=== PATIENT | female | born 1950 | race Caucasian/White ===

== ENCOUNTER → 2016-08-18 | Outpatient (CLI) | payer MEDICARE ==
[~2016-08-18] MED LIST: ASPI81TA28 PO; ATOR-14 PO; CALC-20 PO; CHOL100027 PO; CYAN500T PO; CYCL10TA6 PO; IPRA1AER2 INH; LISI-787 PO; METO1TAB31 PO; OMEGCAP2 PO; ZNT/150 PO
[2016-08-18 12:05] LABS: HEMATOCRIT 40.4 % (37-47); MEAN CELL VOLUME 87.1 fL (80-100); MEAN CORPUSCULAR HEMOGLOBIN 29.5 pg (25-34); MEAN CORPUSCULAR HGB CONC 33.9 g/dl (32-36); MEAN PLATELET VOLUME 10.8 fL (7.4-10.4); PLATELET COUNT 304 K/uL (130-400); RED BLOOD COUNT 4.64 M/uL (4.2-5.4); WHITE BLOOD COUNT 8.41 K/uL (4.8-10.8)
[2016-08-18 12:20] LABS: BLOOD UREA NITROGEN 20 mg/dl (7-18); CALCIUM 9.2 mg/dl (8.5-10.1); CARBON DIOXIDE 28 mmol/L (21-32); CHLORIDE 104 mmol/L (98-107); GLUCOSE 111 mg/dl (70-99); POTASSIUM 3.5 mmol/L (3.5-5.1); SODIUM 142 mmol/L (136-145)
== END | disposition home or self-care (01) ==
LOC: C.LABBC 09:44
PROVIDERS: ATTEND Internal Medicine
DX: R42 Dizziness and giddiness (principal)

== ENCOUNTER → 2017-03-05 | Outpatient (CLI) | payer MEDICARE ==
[~2017-03-05] MED LIST changes: +GADAVIST IV PRN
--- NOTE | 2017-03-05 11:54 | DIAGNOSTIC IMAGING REPORT ---
BRAIN COMBO FOR IAC CLINICAL HISTORY: DIZZINESS mental status change TECHNIQUE: Multi axial MRI acquisition COMPARISON STUDY: None FINDINGS: All major sinuses are considered clear. Signal characteristics of the cerebellar as well as cerebral hemispheres are unremarkable. There is a single focus of increased signal on the transaxial FLAIR images in the left frontal lobe region. This is most consistent with that of mild chronic small vessel change considered unremarkable for age.. Ventricular system is midline. There is no significant postcontrast enhancement. Sella and parasellar regions are unremarkable. Internal auditory canals are symmetric. Unremarkable signal characteristics are identified within the 7th and 8th nerves. IMPRESSION: Normal study The above report was generated using voice recognition software. It may contain grammatical, syntax or spelling errors. Electronically signed by: Jericho Mendez M.D. 03/05/2017 11:52 AM Dictated Date/Time: 03/05/2017 11:49 AM
== END | disposition home or self-care (01) ==
LOC: C.OPENMRI 10:13
DX: R42 Dizziness and giddiness (principal)

== ENCOUNTER 2017-08-02 17:47 | Emergency (ER) | payer MEDICARE ==
[~2017-08-02] VITALS: Ht 157.5 cm; Wt 77.0 kg
[~2017-08-02 17:47] MED LIST changes: -GADAVIST IV PRN; +METO-478 PO; -METO1TAB31 PO
[2017-08-02 17:49] VITALS: TEMP 36.9; Ht 157.5 cm; Wt 77.0 kg
[2017-08-02] MEDS ORDERED: ONDANSETRON INJ 2 MG/ML 2 ML VIAL IV STA (18:23)
[2017-08-02] MEDS ORDERED: FLUV1CAP PO (18:28)
[2017-08-02] MEDS ORDERED: SODIUM CHLORIDE 0.9% 1000ML 1,000 ML IV ONE (18:30)
--- NOTE | 2017-08-02 18:39 | EMERGENCY ROOM VISIT NOTE ---
History First contact with patient: 17:52 Chief Complaint: ABDOMINAL PAIN Stated Complaint: ABDOMINAL PAIN AND BLEEDING Nursing Triage Summary: Pt states that she noticed bright red blood in her stool this morning. Pt has a history of hemorrhoids. Pt denies any abdominal pain. + bowel sounds History of Present Illness The patient is a 67 year old female who presents to the Emergency Room with complaints of nausea, vomiting, diarrhea and abdominal pain that started yesterday. The patient reports constipation over the last week. Yesterday, she took Dulcolax by mouth and also a Dulcolax suppository. Shortly thereafter , she had vomiting and diffuse abdominal pain associated with diarrhea. She is also had a few bloody bowel movements throughout the day. She describes as a few tablespoons with small clots. It does not fill the bowl. She denies any fever or chills. No sick contacts or recent antibiotic use. Review of Systems 10 system review performed and negative unless noted in HPI or below Past Medical/Surgical History Hypertension, hyperlipidemia Social History Smoking Status: Never Smoker Marital Status: Housing Status: lives with family Current/Historical Medications Scheduled Aspirin (Aspirin Ec), 81 MG PO DAILY Calcium Carbonate-Vitamin D (Calcium 600 + D), 1 TABLET PO BID Fluvastatin (Lescol), 20 MG PO Q2D Lisinopril/Hctz (Zestoretic 20MG/12.5MG), 1 TABLET PO DAILY Metoprolol Succinate (Toprol Xl), 25 MG PO DAILY Scheduled PRN Ipratropium-Albuterol (Combivent Respimat), 2 PUFFS INH QID PRN for Shortness of Breath Physical Exam Vital Signs Date Time Temp Pulse Resp B/P (MAP) Pulse Ox O2 Delivery O2 Flow Rate FiO2 08/02/17 20:01 69 18 127/78 99 Room Air 08/02/17 17:49 36.9 78 16 132/72 96 Room Air Physical Exam VITALS: Vitals are noted on the nurse's note and reviewed by myself. Vital signs stable. GENERAL: 67-year-old female, in no acute distress, nondiaphoretic, well- developed well-nourished. SKIN: The skin was without rashes, erythema, edema, or bruising. HEAD: Normocephalic atraumatic. MOUTH: Oral mucosa slightly dry NECK: No JVD. HEART: Regular rate and rhythm without murmurs gallops or rubs. LUNGS: Clear to auscultation bilaterally without wheezes, rales or rhonchi. No accessory muscle use. ABDOMEN: Positive bowel sounds x 4.Soft, nontender, without organomegaly. No guarding or rebound tenderness. MUSCULOSKELETAL: No muscle atrophy, erythema, or edema noted. Normal gait. Strength 5/5 throughout. NEURO: Patient was alert and oriented to person place and time. Normal sensation to touch. No focal neurological deficits. Medical Decision & Procedures ER Provider Diagnostic Interpretation: CT abdomen and pelvis with IV contrast only IMPRESSION: Moderate thickening and pericolonic fat stranding involving the distal 10 cm of the transverse colon. This is consistent with a nonspecific colitis and favors an infectious or inflammatory process. Follow-up nonemergent colonoscopy is recommended once the patient's acute process has resolved to exclude the less likely possibility of an underlying mass. Electronically signed by: Miguel Ángel Smith M.D. 08/02/2017 9:37 PM Dictated Date/Time: 08/02/2017 9:31 PM The status of this report is Signed. Draft = Not yet reviewed or approved by Radiologist. Signed = Reviewed and approved by Radiologist. <AttendingPhy></AttendingPhy> <FamilyPhy>Nikolas Steen M.D.</FamilyPhy> < PrimaryPhy>Nikolas Steen M.D.</PrimaryPhy> <UnitNumber>[id number]</UnitNumber > <VisitNumber>[id number]</VisitNumber> <PatientName>CAROL MORAN</ PatientName> <DateOfBirth>1950</DateOfBirth> <Location>[facility]</Location> < ServiceDate>08/02/17</ServiceDate> <MNE>ESINDI</MNE> <OrderingPhy>Abby Bansal PA-C</OrderingPhy> <OrderingPhyMNE>f rep ord dr trammell</OrderingPhyMNE> < DictatingPhyMNE>f rep dict dr trammell</DictatingPhyMNE> <CCListMNE>f rep ct mne</ CCListMNE> <AdmittingPhyMNE>f pt admit dr trammell</AdmittingPhyMNE> <AttendingPhyMNE >f pt attend dr trammell</AttendingPhyMNE> <ConsultingPhyMNE>f pt consult dr trammell</ConsultingPhyMNE> <FamilyPhyMNE>f pt fam dr trammell</FamilyPhyMNE> <OtherPhyMNE>f pt other dr trammell</OtherPhyMNE> < PrimaryPhyMNE>f pt prim care dr trammell</PrimaryPhyMNE> <ReferringPhyMNE>f pt referring dr trammell</ReferringPhyMNE> Chest x-ray/abdominal films IMPRESSION: No acute cardiopulmonary process. No evidence for bowel obstruction. Electronically signed by: Miguel Ángel Smith M.D. 08/02/2017 7:50 PM Dictated Date/Time: 08/02/2017 7:49 PM The status of this report is Signed. Draft = Not yet reviewed or approved by Radiologist. Signed = Reviewed and approved by Radiologist. <AttendingPhy></AttendingPhy> <FamilyPhy>Nikolas Steen M.D.</FamilyPhy> < PrimaryPhy>Nikolas Steen M.D.</PrimaryPhy> <UnitNumber>[id number]</UnitNumber > <VisitNumber>[id number]</VisitNumber> <PatientName>CAROL MORAN Laboratory Results 08/02/17 18:40 Red Blood Count 4.28, Mean Corpuscular Volume 88.3, Mean Corpuscular Hemoglobin 29.7, Mean Corpuscular Hemoglobin Concent 33.6, Mean Platelet Volume 10.3, Neutrophils (%) (Auto) 71.8, Lymphocytes (%) (Auto) 17.6, Monocytes (%) (Auto) 9.7, Eosinophils (%) (Auto) 0.5, Basophils (%) (Auto) 0.1, Neutrophils # (Auto) 9.94, Lymphocytes # (Auto) 2.44, Monocytes # (Auto) 1.35, Eosinophils # (Auto) 0.07, Basophils # (Auto) 0.02 08/02/17 18:40 Test 08/02/17 18:40 White Blood Count 13.86 K/uL (4.8-10.8) Red Blood Count 4.28 M/uL (4.2-5.4) Hemoglobin 12.7 g/dL (12.0-16.0) Hematocrit 37.8 % (37-47) Mean Corpuscular Volume 88.3 fL (80-100) Mean Corpuscular Hemoglobin 29.7 pg (25-34) Mean Corpuscular Hemoglobin Concent 33.6 g/dl (32-36) Platelet Count 274 K/uL (130-400) Mean Platelet Volume 10.3 fL (7.4-10.4) Neutrophils (%) (Auto) 71.8 % Lymphocytes (%) (Auto) 17.6 % Monocytes (%) (Auto) 9.7 % Eosinophils (%) (Auto) 0.5 % Basophils (%) (Auto) 0.1 % Neutrophils # (Auto) 9.94 K/uL (1.4-6.5) Lymphocytes # (Auto) 2.44 K/uL (1.2-3.4) Monocytes # (Auto) 1.35 K/uL (0.11-0.59) Eosinophils # (Auto) 0.07 K/uL (0-0.5) Basophils # (Auto) 0.02 K/uL (0-0.2) RDW Standard Deviation 43.0 fL (36.4-46.3) RDW Coefficient of Variation 13.3 % (11.5-14.5) Immature Granulocyte % (Auto) 0.3 % Immature Granulocyte # (Auto) 0.04 K/uL (0.00-0.02) Anion Gap 8.0 mmol/L (3-11) Est Creatinine Clear Calc Drug Dose 56.2 ml/min Estimated GFR () 74.2 Estimated GFR (Non- 64.0 BUN/Creatinine Ratio 23.1 (10-20) Calcium Level 8.7 mg/dl (8.5-10.1) Magnesium Level 2.2 mg/dl (1.8-2.4) Total Bilirubin 0.5 mg/dl (0.2-1) Aspartate Amino Transf (AST/SGOT) 17 U/L (15-37) Alanine Aminotransferase (ALT/SGPT) 22 U/L (12-78) Alkaline Phosphatase 67 U/L (45-117) Total Protein 7.2 gm/dl (6.4-8.2) Albumin 3.5 gm/dl (3.4-5.0) Globulin 3.7 gm/dl (2.5-4.0) Albumin/Globulin Ratio 0.9 (0.9-2) Date/Time Source Procedure Growth Status 08/02/17 16:34 Stool C.difficile Toxin B Gene (PCR) - Final No C. difficile toxin B gene detected Complete Medications Administered Medications (Trade) Dose Ordered Sig/Ree Route Start Time Stop Time Status Last Admin Dose Admin Sodium Chloride 1,000 ml @ 999 mls/hr Q1H1M ONCE IV 08/02/17 18:30 08/02/17 19:30 DC 08/02/17 19:16 999 MLS/HR Ondansetron HCl (Zofran Inj) 4 mg NOW STAT IV 08/02/17 18:23 08/02/17 18:27 DC 08/02/17 19:16 4 MG Potassium Chloride (Klor-Con M10) 40 meq NOW STAT PO 08/02/17 19:28 08/02/17 19:29 DC 08/02/17 20:00 40 MEQ Promethazine HCl 12.5 mg/Sodium Chloride 50.5 ml @ 204 mls/hr NOW STAT IV 08/02/17 20:18 08/02/17 20:32 DC 08/02/17 20:41 204 MLS/HR ED Course Patient was seen and examined Vital signs including blood pressure were reviewed medications list was verified with patient Labs were obtained, and a saline lock was established The patient was medicated with Zofran and hydrated with 1 L of normal saline. Upon reevaluation, the patient was still complaining of nausea. She was given Phenergan 12.[address] scan was performed. The patient was also seen and examined by supervising physician The patient was reassessed, and much more comfortable. We discussed the results of her workup. She voiced understanding. I reviewed discharge instructions the patient. They voiced understanding and had no further questions. Medical Decision Differential diagnosis: Viral gastroenteritis, bacterial gastroenteritis, bowel obstruction, hemorrhoids, anal trauma This patient is a 67-year-old female that presents emergency department with nausea, vomiting, diarrhea, abdominal pain and blood in her stool. On exam, she is nontoxic in appearance. Her abdomen is benign. Upon review of her labs , there is mild leukocytosis. She did have blood in her stool. A CT scan was performed and consistent with colitis. This is likely infectious in nature. She is tolerating liquids. I believe she is stable to be discharged home with close follow-up. The patient and the patient's are comfortable with this plan. She was advised to call her primary care physician tomorrow for a follow-up appointment. She was sent home with a short course of Phenergan. She agrees to return to the emergency department with any new, worsening or concerning symptoms. This chart was completed in part utilizing [employer] Speech Voice Recognition software. Attempts were made to minimize the grammatical errors, random word insertions, pronoun errors and incomplete sentences. Any formal questions or concerns about the content, text or information contained within the body of this dictation should be directly addressed to the provider for clarification. Medication Reconcilliation Current Medication List: was personally reviewed by me Blood Pressure Screening Patient's blood pressure: Normal blood pressure Impression Primary Impression: Colitis Departure Information Dispostion Home / Self-Care Condition GOOD Prescriptions Promethazine Hcl (Phenergan) 25 Mg Tab 25 MG PO Q6H Y for Nausea, #15 TAB Prov: Abby Bansal PA-C 08/02/17 Referrals Nikolas Steen M.D. (PCP) Patient Instructions My [facility] Additional Instructions You were evaluated in the emergency department for vomiting, diarrhea and blood in your stool. This is probably secondary to gastrointestinal illness that will likely resolve itself. Please stick to a clear liquid diet with soup broth, water and sports drinks tonight. If tolerating, advance to a bland diet tomorrow. Please call your primary care physician tomorrow. It is very important for you to be seen by your doctor in the next few days for follow-up. You may need to see a GI doctor if your symptoms persist. Phenergan 1 tab every 6 hours as needed for nausea. Please do not hesitate to return to the emergency department with any new, worsening or concerning symptoms; especially, worsening pain, more blood or fever
[2017-08-02 19:03] LABS: BASO % 0.1 %; BASO ABS # 0.02 K/uL (0-0.2); COMPLETE YES; EOS % 0.5 %; HEMATOCRIT 37.8 % (37-47); IG% 0.3 %; LYMPH % 17.6 %; LYMPH ABS # 2.44 K/uL (1.2-3.4); MEAN CELL VOLUME 88.3 fL (80-100); MEAN CORPUSCULAR HEMOGLOBIN 29.7 pg (25-34); MEAN CORPUSCULAR HGB CONC 33.6 g/dl (32-36); MEAN PLATELET VOLUME 10.3 fL (7.4-10.4); MONO % 9.7 %; NEUT % 71.8 %; PLATELET COUNT 274 K/uL (130-400); RED BLOOD COUNT 4.28 M/uL (4.2-5.4); WHITE BLOOD COUNT 13.86 K/uL (4.8-10.8)
[2017-08-02 19:17] LABS: BUN/CREATININE RATIO 23.1 (10-20); CALCIUM 8.7 mg/dl (8.5-10.1); CREATININE 0.92 mg/dl (0.60-1.20); MAGNESIUM 2.2 mg/dl (1.8-2.4); POTASSIUM 3.2 mmol/L (3.5-5.1)
[2017-08-02 19:20] LABS: ALB/GLOB RATIO 0.9 (0.9-2)
[2017-08-02] MEDS ORDERED: POTASSIUM CHLORIDE 10 MEQ TABCR PO STA (19:28)
--- NOTE | 2017-08-02 19:51 | DIAGNOSTIC IMAGING REPORT ---
CHEST AND ABDOMEN 2 VIEWS HISTORY: Generalized abdominal pain diarrhea blood in stool COMPARISON: Chest 06/01/2015. FINDINGS: The lungs are clear. The cardiomediastinal silhouette is within normal limits. There is no pneumoperitoneum or pneumatosis. The bowel gas pattern is unremarkable. No evidence for bowel obstruction. No renal or ureteral calculi. Multiple pelvic phleboliths. Mild dextroscoliosis of the lumbar spine. IMPRESSION: No acute cardiopulmonary process. No evidence for bowel obstruction. Electronically signed by: Miguel Ángel Smith M.D. 08/02/2017 7:50 PM Dictated Date/Time: 08/02/2017 7:49 PM
[2017-08-02] MEDS ORDERED: PROMETHAZINE HCL INJ 12.5 MG in SODIUM CHLORIDE 0.9% 50ML 50 ML IV STA (20:18)
--- NOTE | 2017-08-02 20:37 | EMERGENCY ROOM VISIT NOTE ---
ED Visit Note First contact with patient: 17:53 I have seen and examined this patient with Abby Bansal and generally agree with the treatment plan as discussed.
[2017-08-02] MEDS ORDERED: OPTIRAY 320 IV PRN (21:00)
--- NOTE | 2017-08-02 21:39 | DIAGNOSTIC IMAGING REPORT ---
ABDOMEN AND PELVIS CT WITH IV CONTRAST CT DOSE: 404.30 mGy.cm HISTORY: Generalized abd pain n/v/d blood in stool TECHNIQUE: Multiaxial CT images of the abdomen and pelvis were performed following the use of intravenous contrast. A dose lowering technique was utilized adhering to the principles of ALARA. COMPARISON STUDY: Abdominal series 08/02/2017. Chest CT 06/25/2015. FINDINGS: Stable 3 mm subpleural nodule within the right lobe. No suspicious lytic or blastic osseous lesions. A 6 6 mm hypodense lesion within the left hepatic lobe is too small to characterize. The gallbladder, pancreas, spleen, and adrenal glands are unremarkable. No retroperitoneal lymphadenopathy. There are few subcentimeter hypodense lesions seen within the kidneys. The largest on the left measures 8 mm. These are technically too small to characterize. No hydronephrosis. Hysterectomy. The bladder is unremarkable. Normal appendix. No evidence for bowel obstruction. Moderate thickening and pericolonic fat stranding involving the distal 10 cm of the transverse colon. This is consistent with a nonspecific colitis. No perforation or abscess identified at this time. IMPRESSION: Moderate thickening and pericolonic fat stranding involving the distal 10 cm of the transverse colon. This is consistent with a nonspecific colitis and favors an infectious or inflammatory process. Follow-up nonemergent colonoscopy is recommended once the patient's acute process has resolved to exclude the less likely possibility of an underlying mass. Electronically signed by: Miguel Ángel Smith M.D. 08/02/2017 9:37 PM Dictated Date/Time: 08/02/2017 9:31 PM
[2017-08-02] MEDS ORDERED: PHENERGAN 25MG HOMEPACK PO ONE (22:30)
[2017-08-02] MEDS ORDERED: PROM25TA9 PO (22:32)
[2017-08-02 22:51] VITALS: BP 113/55; PULSE 75; O2SAT 94
== END 2017-08-02 22:52 | disposition home or self-care (01) ==
LOC: C.EDB 17:48 → C.EDA 22:52
DX: K52.9 Noninfective gastroenteritis and colitis, unspecified (principal); I10 Essential (primary) hypertension; E78.5 Hyperlipidemia, unspecified; Z79.82 Long term (current) use of aspirin

== ENCOUNTER → 2017-12-03 | Outpatient (CLI) | payer MEDICARE ==
[~2017-12-03] MED LIST changes: -ATOR-14 PO; -CHOL100027 PO; -CYAN500T PO; -CYCL10TA6 PO; +FLUV1CAP PO; -OMEGCAP2 PO; +PROM25TA9 PO; -ZNT/150 PO
[2017-12-03 13:35] LABS: BASO % 0.1 %; BASO ABS # 0.01 K/uL (0-0.2); EOS % 1.9 %; EOS ABS # 0.14 K/uL (0-0.5); HEMATOCRIT 40.4 % (37-47); HEMOGLOBIN 13.5 g/dL (12.0-16.0); IG# 0.01 K/uL (0.00-0.02); LYMPH % 39.4 %; LYMPH ABS # 2.83 K/uL (1.2-3.4); MEAN CORPUSCULAR HEMOGLOBIN 29.7 pg (25-34); MEAN CORPUSCULAR HGB CONC 33.4 g/dl (32-36); MEAN PLATELET VOLUME 11.5 fL (7.4-10.4); MONO % 8.9 %; MONO ABS # 0.64 K/uL (0.11-0.59); NEUT % 49.6 %; NEUT ABS # 3.55 K/uL (1.4-6.5); PLATELET COUNT 262 K/uL (130-400); RED CELL DISTRIBUTION WIDTH CV 13.9 % (11.5-14.5); RED CELL DISTRIBUTION WIDTH SD 45.3 fL (36.4-46.3); WHITE BLOOD COUNT 7.18 K/uL (4.8-10.8)
[2017-12-03 14:07] LABS: ALBUMIN 3.6 gm/dl (3.4-5.0); ALT/SGPT 22 U/L (12-78); AST/SGOT 17 U/L (15-37); BLOOD UREA NITROGEN 17 mg/dl (7-18); CALCIUM 9.3 mg/dl (8.5-10.1); CARBON DIOXIDE 27 mmol/L (21-32); CREATININE 1.06 mg/dl (0.60-1.20); GLUCOSE 107 mg/dl (70-99); POTASSIUM 3.5 mmol/L (3.5-5.1); SODIUM 140 mmol/L (136-145)
[2017-12-03 14:18] LABS: ALKALINE PHOSPHATASE 70 U/L (45-117); CHOLESTEROL 262 mg/dl (0-200); HEMOGLOBIN A1C 6.2 % (4.5-5.6); LDL CHOLESTEROL CALCULATED 176 mg/dl; TOTAL PROTEIN 7.1 gm/dl (6.4-8.2)
== END | disposition home or self-care (01) ==
LOC: C.LABPBG 10:33
PROVIDERS: ATTEND Internal Medicine Geriatric Medicine
DX: E78.5 Hyperlipidemia, unspecified (principal); I10 Essential (primary) hypertension; R73.9 Hyperglycemia, unspecified; I25.119 Atherosclerotic heart disease of native coronary artery with unspecified angina pectoris

== ENCOUNTER 2025-04-07 17:21 | Observation (INO) ==
[2025-04-07 17:52] LABS: Hematocrit (blood only) 38.2 % (37.0-47.0); Hemoglobin 12.6 g/dl (12.0-16.0); Immature Granulocytes # (auto) 0.02 K/uL (0.01-0.20); Immature Granulocytes % (auto) 0.2 %; Mean Corpuscular Hemoglobin 29.2 pg (25.0-34.0); Mean Corpuscular Volume 88.6 fL (80.0-100.0); Platelet Count 311 K/uL (130-400); RDW Standard Deviation 42.3 fL (36.4-46.3); Red Blood Count 4.31 M/uL (4.20-5.40); White Blood Count 8.82 K/ul (4.8-10.8)
[2025-04-07 18:07] LABS: Alanine Aminotransferase 14.0 U/L (7-52); Albumin Globulin Ratio 1.3 (0.9-2); Alkaline Phosphatase 84.0 U/L (34-104); Anion Gap 8.0 (3-11); Bilirubin,Total 0.4 mg/dl (0.2-1.0); Blood Urea Nitrogen 12.0 mg/dl (6-23); Calcium 9.6 mg/dl (8.6-10.3); Carbon Dioxide 26.0 mmol/L (21-32); Chloride 106.0 mmol/L (98-107); Creatinine Clr Calc Pharmacy 49.6 ml/min; Globulin 3.3 gm/dl (2.5-4.0); Glucose 133.0 mg/dl (70-99(Fasting)); Potassium 4.1 mmol/L (3.5-5.1); Sodium 140.0 mmol/L (136-145); Total Protein 7.5 gm/dl (6.0-8.3)
--- NOTE | 2025-04-07 18:14 | Emergency Department Note ---
Impression & Plan Chest pain, CAD (coronary artery disease), Hypertension ED Provider Note NAME: CAROL MORAN AGE: 75 SEX: F : 1950 ARRIVES VIA: Walk-In INFORMANT: Patient, ED PROVIDER(S): Lyndon Fletcher MD CHIEF COMPLAINT: Chest pain MEDICAL DECISION MAKING: Patient presents due to concern for chest pain. IV was established and blood work was obtained along with EKG and troponin. Patient was ordered full dose aspirin. Blood work grossly unremarkable with nonischemic EKG but the patient was not having chest pain at the time of the EKG. Patient's chest pain has been waxing and waning and may be too brief for troponin elevation but no recent provocative testing or cardiac catheterization since 2019. In light of the symptoms do believe the patient would benefit from admission monitoring and further provocative testing tomorrow. Patient currently without chest pain at this time. Patient does have moderate risk based on heart score believe the patient warrants further inpatient treatment and workup. I did speak the on- call hospital service Dr. Morris and the patient was admitted to the medicine service. Discussion w/ other healthcare providers: Dr. Morris inpatient medicine service Prior /Outside records reviewed: None Differential diagnosis: Cardiac ischemia, aortic dissection, pulmonary embolism, pneumothorax, pneumonia, pericarditis, myocarditis, GERD, cholecystitis, pancreatitis, musculoskeletal, as well as other pathologies were considered. Diagnostics, as interpreted by me: ECG: Normal sinus rhythm, rate of 73, normal intervals, normal axis no ST elevations. Cardiac monitoring: An order was placed for continuous cardiac monitoring. The monitor shows a rate of 75 with sinus rhythm. Patient was placed on pulse oximetry Medical decision rules: Heart score Imaging studies: I informally interpreted the patient's Chest x-ray does not show obvious pneumonia with formal report to follow. HPI: Patient presents due to concern for chest pains. The patient states that it initially began around 2 AM this morning. The patient describes it as heaviness left-sided with radiation down the left arm with associated numbness. Review of the notes does show the patient does have a history of nonobstructive CAD with cardiac cath and echo last completed in 2019. She denies any active chest pain at this time. She did not have significant pain when EKG was obtained upon arrival. The patient states that the symptoms have been waxing and waning lasting about 15 and 20 minutes in duration but then going away for 15 and 20 minutes. Patient states that it has been happening at rest. No leg swelling or calf pain no cough or fever. No known sick contacts. No history of DVT or PE no recent surgeries procedures or hospitalizations no recent plane car plane travel. She did not take anything for symptoms at this time. The patient also reported that she felt a little clammy and nauseous with her bouts of chest pain. Patient also has described shortness of breath with these episodes. PAST MEDICAL HISTORY: See Below PAST SURGICAL HISTORY: See Below SOCIAL HISTORY: See Below HOME MEDICATIONS: See Below ALLERGIES: See Below VITALS: See Below PHYSICAL EXAMINATION: GENERAL: NAD, non-toxic. Wearing glasses.' EYE EXAM: Normal conjunctiva. PERRL, no anisocoria and EOM's grossly intact w/o pain. OROPHARYNX: Moist mucus membranes, grossly normal dentition. NECK: Trachea midline, no stridor. LUNGS: Clear to auscultation. Normal chest wall mechanics. HEART: NSR, no MRG. ABDOMEN: Abdomen soft, non-tender, no masses, no rebound or guarding. BACK: No CVA TTP. SKIN: No rashes and no bruising. UPPER EXTREMITIES: Upper extremities are grossly normal. LOWER EXTREMITIES: Grossly normal, no edema. Negative Homans' sign bilaterally. NEURO EXAM: Awake and alert, follows commands, no obvious facial asymmetry, normal speech, moves all 4 extremities. Past Med/Surg History Problem List (Updated 04/07/25 @ 23:53 by Lyndon Fletcher MD) Chest pain (Acute) Angina at rest Xanthelasma of eyelid, bilateral Cervical radicular pain Left upper extremity numbness Ascending aorta dilatation Moderate aortic insufficiency Poorly-controlled hypertension Resistant hypertension Thyroid nodule Diabetes type 2, controlled Elevated TSH Sensory polyneuropathy B12 deficiency Meniere disease Statin myopathy (Acute) Obesity Vertigo Peripheral arterial disease Urinary incontinence Anxiety CAD (coronary artery disease) (Acute) Aortic regurgitation Asthma Bilateral sensorineural hearing loss "ringing in the ears" Dyslipidemia Gastroesophageal reflux disease Hypertension (Acute) Insomnia Holley syndrome Multiple pulmonary nodules pt denies Osteopenia Medical History Hx of vertigo "has gotten better" Urinary incontinence Thyroid nodule Sensory polyneuropathy Peripheral arterial disease Osteopenia Multiple pulmonary nodules Insomnia Diabetes type 2, controlled diet controlled Hypertension Dyslipidemia GERD (gastroesophageal reflux disease) Cervical radicular pain "has gotten better, due to arthritis in her neck" Asthma inh prn>rare use Ascending aorta dilatation Aortic regurgitation History of anxiety Holley syndrome CAD (coronary artery disease) f/u [facility] History of nephrolithiasis no sx History of colitis History of COVID-19 diagnosed 05/04/2022 @ [facility]--head pain, severe bone pain, slight cough, fatigue--did take antiviral--no symptoms now Hx of endometriosis BCC (basal cell carcinoma) hx Surgical History Hx of cardiac cath 2019, [facility], no stents; f/u [facility] History of esophagogastroduodenoscopy (EGD) History of colonoscopy 05/2023 S/P Mohs surgery for basal cell carcinoma History of total hysterectomy with removal of both tubes and ovaries Family History Father , 79 Hyperlipidemia Myocardial infarction Sister , 61 Ovarian cancer Breast cancer Benign adenomatous polyp of large intestine Family history of reaction to anesthesia difficulty waking Daughter Holley syndrome Son Colorectal cancer, Onset Age: 47 Holley syndrome Mother , 69 Aortic aneurysm Heart disease Hypertension Denies family history of Prostate cancer Lung cancer Social History Smoking Status: Never smoker Second Hand Exposure: Yes (hx); Do You Dip or Chew Tobacco: No; Hx Alcohol Use: No Hx Substance Use: No Preferred Language: Lao Communication Ability: Effective Visual Impairment: No Limitations Hearing Ability: Normal Residential Child Care Counselor Required: No Beliefs That Will Affect Care: None marital status: Current Living Situation: Spouse current occupational status: retired Feels Safe at Home: Yes Childhood Exposure to Second-Hand Smoke: Yes Diet: regular Diet Comment: regular caffeine: Yes (tea 1 cup per day.) during the past year weight has: remained stable Dental Care, Regularly: Yes Physical Activity Frequency: 3-4 Times per Week Seatbelt Use: always Sunscreen Use: Yes Assistive Devices: Glasses Allergies Allergies Allergy/AdvReac Type Severity Reaction Status Date / Time raloxifene [From Evista] Allergy Intermediate edema Verified 03/20/25 13:03 metformin AdvReac Severe Diarrhea Verified 03/20/25 13:03 amlodipine AdvReac Intermediate Rash Verified 03/20/25 13:03 atorvastatin [From Lipitor] AdvReac Intermediate myalgia Verified 03/20/25 13:03 chlorthalidone AdvReac Intermediate Joint Pain Verified 03/20/25 13:03 ezetimibe [From Zetia] AdvReac Intermediate myalgias Verified 03/20/25 13:03 fluvastatin AdvReac Intermediate myalgias Verified 03/20/25 13:03 hydrochlorothiazide AdvReac Intermediate Abdominal Verified 03/20/25 13:03 Pain levothyroxine AdvReac Intermediate MUSCLE Verified 03/20/25 13:03 STIFFNESS/PAIN lisinopril AdvReac Intermediate dry cough Verified 03/20/25 13:03 rosuvastatin AdvReac Intermediate myalgias Verified 03/20/25 13:03 simvastatin AdvReac Intermediate myalgias Verified 03/20/25 13:03 pravastatin AdvReac Diarrhea Uncoded 03/20/25 13:03 Home Meds Home Medications Medication Instructions Recorded Confirmed albuterol sulfate 90 mcg/actuation 2 puffs inhalation Q4H PRN 05/13/19 03/20/25 aerosol inhaler shortness of breath or wheezing #1 g aspirin 81 mg tablet,delayed 81 mg PO HS 07/27/19 03/20/25 release acetaminophen 325 mg tablet 325 mg PO QID PRN Pain 05/08/23 03/20/25 (Tylenol) ondansetron 4 mg disintegrating 4 mg PO Q8H PRN Nausea 05/08/23 03/20/25 tablet cyanocobalamin (vitamin B-12) 1,000 mcg IM Q30D 12/11/23 03/20/25 1,000 mcg/mL injection solution Previous Rx's Medication Instructions Recorded telmisartan 20 mg tablet 20 mg PO BID #180 tabs 05/21/24 metoprolol succinate 25 mg 12.5 mg (1/2 x 25 mg) PO BID #90 08/11/24 tablet,extended release 24 hr tabs spironolactone 25 mg tablet 25 mg PO QAM #90 tabs 09/29/24 omeprazole 20 mg capsule,delayed 20 mg PO QAM #90 caps 01/27/25 release cyanocobalamin (vitamin B-12) 1,000 mcg PO DAILY #30 caps 03/24/25 1,000 mcg capsule Results & Data (ED) Vital Signs Vital Signs - 24 hr 04/07/25 17:27 04/07/25 17:27 04/07/25 18:10 Temperature 36.7 C Temperature Source Temporal Artery Scan Pulse Rate 73 68 Pulse Rate from SpO2 Sensor Respiratory Rate 17 22 Respiratory Effort / Characteristics SOB on Exertion Blood Pressure 180/73 H 173/91 H Blood Pressure Mean 108 134 Pulse Oximetry 97 95 Oxygen Delivery Method Room Air Room Air Sepsis Recent Fever Within 48 Hours No Sepsis New/Unexplained Change in Mental Status N/A Sepsis Action Taken by Nursing No Action Required 04/07/25 18:12 04/07/25 18:12 04/07/25 18:14 Temperature Temperature Source Pulse Rate 64 Pulse Rate from SpO2 Sensor Respiratory Rate Respiratory Effort / Characteristics Blood Pressure Blood Pressure Mean Pulse Oximetry 96 94 Oxygen Delivery Method Room Air Room Air Sepsis Recent Fever Within 48 Hours Sepsis New/Unexplained Change in Mental Status Sepsis Action Taken by Nursing 04/07/25 19:00 Temperature Temperature Source Pulse Rate 64 Pulse Rate from SpO2 Sensor 64 Respiratory Rate 14 Respiratory Effort / Characteristics Blood Pressure 142/72 H Blood Pressure Mean 95 Pulse Oximetry 94 Oxygen Delivery Method Room Air Sepsis Recent Fever Within 48 Hours Sepsis New/Unexplained Change in Mental Status Sepsis Action Taken by Shelter Medications Current Medication List: was personally reviewed by me Laboratory Data Attestation: I reviewed the patient's lab results. 04/07/25 17:34 04/07/25 17:34 Lab Results 04/07/25 Range/Units 17:34 WBC 8.82 (4.8-10.8) K/ul RBC 4.31 (4.20-5.40) M/uL Hgb 12.6 (12.0-16.0) g/dl Hct 38.2 (37.0-47.0) % MCV 88.6 (80.0-100.0) fL MCH 29.2 (25.0-34.0) pg MCHC 33.0 (32.0-36.0) g/dL RDW Std Deviation 42.3 (36.4-46.3) fL RDW Coeff of Maggi 13.1 (11.5-14.5) % Plt Count 311 (130-400) K/uL MPV 9.5 (9.4-12.4) fL Immature Gran % (Auto) 0.2 % Neut % (Auto) 63.0 % Lymph % (Auto) 26.6 % [place] % (Auto) 8.2 % Eos % (Auto) 1.5 % Baso % (Auto) 0.5 % Neut # (Auto) 5.56 (1.40-6.50) K/uL Lymph # (Auto) 2.35 (1.20-3.40) K/uL [place] # (Auto) 0.72 H (0.11-0.59) K/uL Eos # (Auto) 0.13 (0.00-0.50) K/uL Baso # (Auto) 0.04 (0.00-0.20) K/uL Immature Gran # (Auto) 0.02 (0.01-0.20) K/uL PT 10.7 (9.0-12.0) Seconds INR 1.0 (0.9-1.1) APTT 27 (21-31) Seconds PTT Ratio 1.0 Sodium 140 (136-145) mmol/L Potassium 4.1 (3.5-5.1) mmol/L Chloride 106 (98-107) mmol/L Carbon Dioxide 26 (21-32) mmol/L Anion Gap 8 (3-11) BUN 12 (6-23) mg/dl Creatinine 0.91 (0.6-1.2) mg/dl Est Cr Clr Drug Dosing 49.6 ml/min eGFR 65.38 BUN/Creatinine Ratio 13.2 (10-20) Glucose 133 H (70-99(Fasting)) mg/dl Calcium 9.6 (8.6-10.3) mg/dl Magnesium 2.1 (1.7-2.4) mg/dl Total Bilirubin 0.4 (0.2-1.0) mg/dl AST 21 (13-39) U/L ALT 14 (7-52) U/L Alkaline Phosphatase 84 (34-104) U/L Troponin I High Sens 4.0 (0-14) pg/ml Total Protein 7.5 (6.0-8.3) gm/dl Albumin 4.2 (3.4-5.0) gm/dl Globulin 3.3 (2.5-4.0) gm/dl Albumin/Globulin Ratio 1.3 (0.9-2) Administered Medications Losartan Potassium (Losartan Potassium 25 Mg Tab) 25 mg PO BID JACOB Stop: 05/07/25 22:14 Last Admin: 04/07/25 23:04 Dose: 25 mg Documented By: LUIS MIGUEL Metoprolol Succinate (Metoprolol Succ 25mg Ext Rel Tab) 12.5 mg PO BID JACOB Stop: 05/07/25 22:14 Last Admin: 04/07/25 23:03 Dose: 12.5 mg Documented By: LUIS MIGUEL Discontinued Medications Aspirin (Aspirin Chew 324 Mg) 324 mg PO NOW STA Stop: 04/07/25 18:33 Last Admin: 04/07/25 18:36 Dose: 324 mg Documented By: CHARLES Imaging Data Radiologist's Impression: Chest X-Ray 04/07/25 17:29 Clinical History: Chest pain Technique: A frontal view of the chest was obtained Findings: There are no confluent pulmonary infiltrates. The heart size is within normal limits. No pleural effusion or pneumothorax is seen. There is no definite pulmonary nodule. No fracture is noted. No foreign body is seen Impression: No active disease Electronically signed by Jose Canales 04-07-2025 6:37 PM Discharge Plan Visit Data Chief Complaint: Chest Pain Stated Complaint: CHEST AND LT ARM PAIN ED Provider: Lyndon Fletcher Discharge Problem: Chest pain, CAD (coronary artery disease), Hypertension Patient Disposition: Admitted As Inpatient Condition: Good Discharge Instructions Interventions: ED Discharge Assessment Last Done: 04/07/25 22:15 Discharge Problem: Chest pain Qualifiers: Chest pain type: unspecified Qualified Code(s): R07.9 - Chest pain, unspecified CAD (coronary artery disease) Qualifiers: Coronary Disease-Associated Artery/Lesion type: [place] artery [place] vs. transplanted heart: [place] heart Associated angina: unspecified whether angina present Qualified Code(s): I25.10 - Atherosclerotic heart disease of [place] coronary artery without angina pectoris Hypertension Qualifiers: Hypertension type: unspecified Qualified Code(s): I10 - Essential (primary) hypertension
[2025-04-07 18:20] LABS: INR 1.0 (0.9-1.1); Partial Thromboplastin Time 27 Seconds (21-31); Prothrombin Time 10.7 Seconds (9.0-12.0)
[2025-04-07] MEDS: ASPIRIN CHEW 324 MG PO STA (18:36)
--- NOTE | 2025-04-07 18:37 | XRay Report ---
Clinical History: Chest pain Technique: A frontal view of the chest was obtained Findings: There are no confluent pulmonary infiltrates. The heart size is within normal limits. No pleural effusion or pneumothorax is seen. There is no definite pulmonary nodule. No fracture is noted. No foreign body is seen Impression: No active disease Electronically signed by Jose Canales 04-07-2025 6:37 PM
--- NOTE | 2025-04-07 19:16 | History & Physical Report ---
Date of Service April 07, 2025 Assessment & Plan (1) Angina at rest: (2) CAD (coronary artery disease): (3) Hypertension: Plan Patient is a 75-year-old female with past medical history of PAD, CAD, prediabetes, HTN. patient presented due to chest pain that radiated down her left arm close left hand numbness that began approximately 2 AM 04/07 but was intermittent throughout the day. She describes it as dull/achy however occasionally does become stabbing and does have associated nausea and dyspnea. She does endorse dyspnea on exertion and dizziness for the past few weeks. Most recent echo 12/2023 and cardiac cath July 2020 revealed 50% proximal LAD stenosis. She is being admitted for further workup including echocardiogram and potential cardiac cath. #chest pain - HEART score 5 = moderate risk. Resolved at time of admission. EKG showed normal sinus rhythm, no ischemic changes and similar to previous. Troponin 4.0, K+ 4.1, mag 2.1, CXR negative. Does have history of CAD and had cardiac cath June 2015 and repeat July 2020 which showed 50% proximal LAD occlusion, follows with Dr. Whittaker. - echo cardiogram ordered - Most recent 12/2023 showed EF 60%, sclerotic aortic valve, mild to moderate AI, mild MV, mild to moderate TR - could consider cath as has been almost 5 years since most recent - NPO after midnight - ordered mag, TSH, troponin with am labs - nitroglycerin prn with CP - EKG prn with CP - loaded with ASA 325mg PO in ED, continue home baby asa daily - continue metoprolol and ARB - consult cardiology #HTN/CADcontinue metoprolol, ARB, baby aspirin, spironolactone. Reported to portillo ve failed all previous medication trials treatment for her cholesterol. #GERDcontinue PPI, denies any symptoms of GERD at time of admission. #Type II DMreported to be borderline, currently diet controlled. VTE ppx: SCDs, defer chemical with potential surgical management Dispo: med/tele Admission and Anticipated Discharge Date Admission Date: 04/07/25 History of Present Illness Chief Complaint: chest pain Primary Care Provider: JOHN Dash Patient is a 75-year-old female with past medical history of PAD, CAD, prediabetes, HTN. patient presented due to chest pain that radiated down her left arm close left hand numbness that began approximately 2 AM 04/07 but was intermittent throughout the day. She describes it as dull/achy however occasionally does become stabbing and does have associated nausea and dyspnea. He does have dyspnea on exertion and dizziness for the past few weeks. Most recent echo 12/2023 and cardiac cath July 2020 revealed 50% proximal LAD stenosis. She is being admitted for further workup including echocardiogram and potential cardiac cath. Patient seen at bedside. She states she woke up with this chest pain that radiated down her left arm into her hand that made it numb. The chest pain went away on its own. It did come and go all day which is what she was concerned and came in. She describes it as dull and achy however stabbing at some points. She did have nausea with associated with it 2 times. She did have associated shortness of breath with it multiple times today. She endorses intermittent dyspnea on exertion for several months that is unchanged. She also has had some dizziness for the past few weeks. She denies any chest pain on exertion for the past few months, she has had pain similar over the past few years. She had a cardiac cath in 2019 which showed 50% proximal LAD stenosis and she follows with Dr. Whittaker. She stated she does have a history of prediabetes however is not on any medications. She denies any smoking or alcohol use. She stated her sister and father both from an [place] and her mother had heart and from an abdominal aortic aneurysm. She is due for her evening medications which include metoprolol and telmisartan, she was loaded with aspirin in the ED. Upon evaluation patient had 3 episodes of several seconds of intermittent chest pain that resolved on its own after only seconds. She wishes to be DNR/DNI. Allergies Allergy/AdvReac Type Severity Reaction Status Date / Time raloxifene [From Evista] Allergy Intermediate edema Verified 03/20/25 13:03 metformin AdvReac Severe Diarrhea Verified 03/20/25 13:03 amlodipine AdvReac Intermediate Rash Verified 03/20/25 13:03 atorvastatin [From Lipitor] AdvReac Intermediate myalgia Verified 03/20/25 13:03 chlorthalidone AdvReac Intermediate Joint Pain Verified 03/20/25 13:03 ezetimibe [From Zetia] AdvReac Intermediate myalgias Verified 03/20/25 13:03 fluvastatin AdvReac Intermediate myalgias Verified 03/20/25 13:03 hydrochlorothiazide AdvReac Intermediate Abdominal Verified 03/20/25 13:03 Pain levothyroxine AdvReac Intermediate MUSCLE Verified 03/20/25 13:03 STIFFNESS/PAIN lisinopril AdvReac Intermediate dry cough Verified 03/20/25 13:03 rosuvastatin AdvReac Intermediate myalgias Verified 03/20/25 13:03 simvastatin AdvReac Intermediate myalgias Verified 03/20/25 13:03 pravastatin AdvReac Diarrhea Uncoded 03/20/25 13:03 Home Medications Medication Instructions Recorded Confirmed Type albuterol sulfate 90 mcg/actuation 2 puffs inhalation Q4H PRN 05/13/19 03/20/25 History aerosol inhaler shortness of breath or wheezing #1 g aspirin 81 mg tablet,delayed 81 mg PO HS 07/27/19 03/20/25 History release acetaminophen 325 mg tablet 325 mg PO QID PRN Pain 05/08/23 03/20/25 History (Tylenol) ondansetron 4 mg disintegrating 4 mg PO Q8H PRN Nausea 05/08/23 03/20/25 History tablet cyanocobalamin (vitamin B-12) 1,000 mcg IM Q30D 12/11/23 03/20/25 History 1,000 mcg/mL injection solution telmisartan 20 mg tablet 20 mg PO BID #180 tabs 05/21/24 03/20/25 Rx metoprolol succinate 25 mg 12.5 mg (1/2 x 25 mg) PO BID #90 08/11/24 03/20/25 Rx tablet,extended release 24 hr tabs spironolactone 25 mg tablet 25 mg PO QAM #90 tabs 09/29/24 03/20/25 Rx omeprazole 20 mg capsule,delayed 20 mg PO QAM #90 caps 01/27/25 03/20/25 Rx release cyanocobalamin (vitamin B-12) 1,000 mcg PO DAILY #30 caps 03/24/25 Rx 1,000 mcg capsule Past Med/Surg History Problem List (Updated 04/07/25 @ 23:53 by Lyndon Fletcher MD) Chest pain (Acute) Angina at rest Xanthelasma of eyelid, bilateral Cervical radicular pain Left upper extremity numbness Ascending aorta dilatation Moderate aortic insufficiency Poorly-controlled hypertension Resistant hypertension Thyroid nodule Diabetes type 2, controlled Elevated TSH Sensory polyneuropathy B12 deficiency Meniere disease Statin myopathy (Acute) Obesity Vertigo Peripheral arterial disease Urinary incontinence Anxiety CAD (coronary artery disease) (Acute) Aortic regurgitation Asthma Bilateral sensorineural hearing loss "ringing in the ears" Dyslipidemia Gastroesophageal reflux disease Hypertension (Acute) Insomnia Holley syndrome Multiple pulmonary nodules pt denies Osteopenia Medical History Hx of vertigo "has gotten better" Urinary incontinence Thyroid nodule Sensory polyneuropathy Peripheral arterial disease Osteopenia Multiple pulmonary nodules Insomnia Diabetes type 2, controlled diet controlled Hypertension Dyslipidemia GERD (gastroesophageal reflux disease) Cervical radicular pain "has gotten better, due to arthritis in her neck" Asthma inh prn>rare use Ascending aorta dilatation Aortic regurgitation History of anxiety Holley syndrome CAD (coronary artery disease) f/u [facility] History of nephrolithiasis no sx History of colitis History of COVID-19 diagnosed 05/04/2022 @ [facility]--head pain, severe bone pain, slight cough, fatigue--did take antiviral--no symptoms now Hx of endometriosis BCC (basal cell carcinoma) hx Surgical History Hx of cardiac cath 2019, [facility], no stents; f/u [facility] History of esophagogastroduodenoscopy (EGD) History of colonoscopy 05/2023 S/P Mohs surgery for basal cell carcinoma History of total hysterectomy with removal of both tubes and ovaries Family History Father , 79 Hyperlipidemia Myocardial infarction Sister , 61 Ovarian cancer Breast cancer Benign adenomatous polyp of large intestine Family history of reaction to anesthesia difficulty waking Daughter Holley syndrome Son Colorectal cancer, Onset Age: 47 Holley syndrome Mother , 69 Aortic aneurysm Heart disease Hypertension Denies family history of Prostate cancer Lung cancer Social History Smoking Status: Never smoker Second Hand Exposure: Yes (hx); Do You Dip or Chew Tobacco: No; Hx Alcohol Use: No Hx Substance Use: No Preferred Language: Pashto Communication Ability: Effective Visual Impairment: No Limitations Hearing Ability: Normal Surgical Services Director Required: No Beliefs That Will Affect Care: None marital status: Current Living Situation: Spouse current occupational status: retired Feels Safe at Home: Yes Childhood Exposure to Second-Hand Smoke: Yes Diet: regular Diet Comment: regular caffeine: Yes (tea 1 cup per day.) during the past year weight has: remained stable Dental Care, Regularly: Yes Physical Activity Frequency: 3-4 Times per Week Seatbelt Use: always Sunscreen Use: Yes Assistive Devices: Glasses Review of Systems Review of Systems: see HPI Physical Exam Physical Exam: The patient is awake, alert and oriented 3, well developed and well nourished, normocephalic and atraumatic, in no acute distress. Non-toxic appearing. HEENT- EOMI, mucous membranes moist. Hearing grossly intact. Heart-normal S1 and S2. No murmurs, rubs or gallops. Lungs-clear bilaterally, no respiratory distress, no accessory muscle use. No chest pain with palpation. Abdomen-normal bowel sounds and soft. No ascites noted. Non-tender. Extremities- no clubbing, cyanosis, or edema. Rheumatologic-normal range of motion. Psychiatric-normal affect. Results & Data Results & Data Vital Signs (Past 12 Hours) Vital Signs Temp Pulse Resp BP Pulse Ox O2 Del Method 04/07/25 19:00 64 14 142/72 H 94 Room Air 04/07/25 18:14 64 04/07/25 18:12 94 Room Air 04/07/25 18:12 96 Room Air 04/07/25 18:10 68 22 173/91 H 95 Room Air 04/07/25 17:27 36.7 C 73 17 180/73 H 97 Room Air Laboratory Results reviewed CBC, CMP, PT/INR, magnesium, troponin Diagnostic Findings reviewed CXR Medications Administered EDaspirin 325 Mg p.o. ECG Additional Comments: NSR, rate 73 QTc 429 Compared to previous very similar Code Status & VTE Plan Code Status dnr/dni VTE Prophylaxis Plan VTE Prophylaxis will be ordered: Yes Supervising Physician Co-Signing Physician Notes Attending addendum: I have physically seen this patient, have supervised the medical residents activities, and agree with the H&P unless as otherwise noted. Assessment and Plan: The patient is a 75-year-old female with past medical history including PAD, CAD, prediabetes, hypertension, moderate aortic insufficiency, Holley syndrome, GERD, and dyslipidemia. She presented to the emergency department due to chest pain that radiated down her left arm, causing left hand numbness that began approximately 2 AM on 04/07, and has been intermittent throughout the day. The pain goes from dull/achy to occasionally stabbing, that is associated with nausea and dyspnea. For the past few weeks she has had some dyspnea on exertion and dizziness. Most recent cardiac catheterization July 2020 was significant for a 50% proximal LAD stenosis. She is referred to [facility] for further evaluation and treatment. Chest pain radiating to left arm/CAD/hypertension- The patient will be admitted to telemetry for serial cardiac enzymes, serial EKG's, cardiac rhythm monitoring and a 2-D echocardiogram with Dopplers. EKG with normal sinus rhythm, no acute ST-T changes Initial troponin 4.0, with follow-up pending From the ED she received aspirin 325 mg p.o., will continue baby aspirin daily Continue metoprolol succinate 12.5 mg p.o. twice daily, spironolactone 25 mg every morning, and telmisartan 20 mg p.o. twice daily Nitroglycerin sublingual's every 5 minutes as needed chest pain GERD- Continue omeprazole/pantoprazole Diet controlled diabetes mellitus- Diet as noted Asthma- Albuterol HFA 2 puffs every 4 hours as needed PG Care Time/CCT Total # of Minutes Spent Total Time Spent with Patient: Total time spent is greater than 50% in coordination of care (as documented) at patient's floor/unit and/or counseling patient: Coding Level of Care Code 85084 INT INP/OBS CARE MIN Diagnoses Angina at rest I20.89 CAD (coronary artery disease) I25.10 Hypertension I10 Hypertension type: unspecified (3) Hypertension Hypertension type: unspecified Qualified Code(s): I10 - Essential (primary) hypertension
[2025-04-07] MEDS ORDERED: NITROGLYCERIN SL 0.4 MG/TAB TAB SL PRN ×2 (19:35→22:15)
[2025-04-07 19:58] LABS: Magnesium 2.1 mg/dl (1.7-2.4)
[2025-04-07] MEDS ORDERED: DOCUSATE SODIUM 100 MG CAP PO PRN (22:15)
[2025-04-07] MEDS ORDERED: MELATONIN 3 MG TAB PO PRN (22:15)
[2025-04-07] MEDS ORDERED: ONDANSETRON INJ 2 MG/ML 2 ML VIAL IV PRN (22:15)
[2025-04-07] MEDS: METOPROLOL SUCC 25MG EXT REL TAB PO SCH (23:03)
[2025-04-07] MEDS: LOSARTAN POTASSIUM 25 MG TAB PO SCH (23:04)
[2025-04-08] MEDS ORDERED: ALBUTEROL HFA 8 GM INHALER INH PRN (03:20)
[2025-04-08 04:42] LABS: Hematocrit (blood only) 33.6 % (37.0-47.0); Hemoglobin 11.4 g/dl (12.0-16.0); Immature Granulocytes # (auto) 0.02 K/uL (0.01-0.20); Immature Granulocytes % (auto) 0.2 %; Mean Corpuscular Hemoglobin 29.8 pg (25.0-34.0); Mean Corpuscular Volume 87.7 fL (80.0-100.0); Platelet Count 265 K/uL (130-400); RDW Standard Deviation 42.1 fL (36.4-46.3); Red Blood Count 3.83 M/uL (4.20-5.40); White Blood Count 8.16 K/ul (4.8-10.8)
[2025-04-08 04:58] LABS: Anion Gap 5.0 (3-11); Blood Urea Nitrogen 12.0 mg/dl (6-23); Calcium 9.2 mg/dl (8.6-10.3); Carbon Dioxide 27.0 mmol/L (21-32); Chloride 107.0 mmol/L (98-107); Creatinine Clr Calc Pharmacy 50.7 ml/min; Glucose 107.0 mg/dl (70-99(Fasting)); Magnesium 2.0 mg/dl (1.7-2.4); Potassium 3.9 mmol/L (3.5-5.1); Sodium 139.0 mmol/L (136-145)
[2025-04-08 05:12] LABS: Thyroid Stimulating Hormone 4.875 uIu/ml (0.300-4.500)
--- NOTE | 2025-04-08 07:51 | Hospitalist Progress Note ---
Date of Service April 08, 2025 Assessment & Plan (1) Chest pain, rule out acute myocardial infarction: (2) Angina at rest: (3) Left upper extremity numbness: (4) Type 2 diabetes mellitus with peripheral neuropathy: Plan In summary this is a 75-year-old female admitted for ACS rule out given concerning presentation of anginal equivalent symptoms Initial onset of symptoms awoke the patient in the morning on 04/07 at approximately 0200 hrs. with left upper extremity aching, left hand numbness, and anterior chest wall heaviness; throughout the day on 04/07 seasonal associated with any particular activity nor specific alleviating factors; multiple comorbidities and established diagnoses contribute to the risk for ACS; initial EKG was without concerning findings; troponin trend was unremarkable; antoni score 106 -Maintain continuous cardiac monitor technician -Nursing to contact attending if patient develops recurrent or new anginal equivalent - continue aspirin 81 mg p.o. daily - TTE pending at this time - cardiology consulted by admitting provider, recommendations pending Resume home metoprolol succinate, spironolactone, telmisartan DVT PPx: SCDs Admission and Anticipated Discharge Date Admission Date: April 07, 2025 Anticipated date of discharge: 04/09/25 Subjective Ms. Odom is a 75-year-old female whose active medical conditions include coronary atherosclerotic disease, type 2 diabetes mellitus with peripheral neuropathy, peripheral arterial disease among other chronic medical conditions who presented to [facility] on 04/07 due to persistent and recurrent episodes of anginal equivalent symptoms. No acute overnight events nor repeat episodes of their initial presenting symptomatology. They have no complaints or concerns at this time. Review of Systems Review of Systems: Remaining review of constitutional, pulmonary, cardiovascular, gastrointestinal, genitourinary, musculoskeletal, neurologic, and integumentary systems was unremarkable except for pertinent positive and negative findings noted in the HPI above. Physical Exam Physical Exam: General: Adult female in no acute distress Vital Signs: reviewed HEENT: pupils equally round reactive to light; extraocular motion intact; moist mucous membranes Neck: no appreciable JVD Pulmonary: symmetric chest wall excursion without restriction; clear to auscultation bilaterally Cardiovascular: regular rate and rhythm without murmurs, rubs, or gallops; S1 and S2 normal; bilateral radial and posterior tibial pulse 2+ Neurologic: CN II-XII grossly intact Results & Data Results & Data Vital Signs (Past 12 Hours) Vital Signs Temp Pulse Pulse Resp BP BP Pulse Ox 04/08/25 07:30 56 L 16 137/77 96 04/08/25 07:27 54 L 04/08/25 03:30 04/08/25 03:00 36.6 C 63 18 114/58 L 96 04/08/25 02:30 64 20 115/62 94 04/08/25 01:30 59 L 16 124/62 95 04/08/25 01:00 55 L 18 136/48 L 94 04/08/25 00:00 58 L 16 129/57 L 96 04/07/25 23:02 64 20 137/69 96 04/07/25 22:31 64 18 164/73 H 97 04/07/25 21:00 63 20 136/79 96 04/07/25 20:31 60 16 139/56 L 95 04/07/25 20:00 63 15 143/51 H 96 Pulse Ox O2 Del Method O2 Del Method 04/08/25 07:30 04/08/25 07:27 04/08/25 03:30 96 Room Air 04/08/25 03:00 Room Air 04/08/25 02:30 Room Air 04/08/25 01:30 Room Air 04/08/25 01:00 Room Air 04/08/25 00:00 Room Air 04/07/25 23:02 Room Air 04/07/25 22:31 Room Air 04/07/25 21:00 Room Air 04/07/25 20:31 Room Air 04/07/25 20:00 Room Air Laboratory Results reviewed Diagnostic Findings TTE pending at this time Medications Administered usual home medications have been continued with the exception of metoprolol to tartrate, held until evening dose on 04/08 given bradycardia in the morning of 04/08 PG Care Time/CCT Total # of Minutes Spent Total Time Spent with Patient: Total time spent is greater than 50% in coordination of care (as documented) at patient's floor/unit and/or counseling patient: Coding Level of Care Code 35962 SUB INP/OBS CARE 3/50MIN Diagnoses Chest pain, rule out acute myocardial infarction R07.9 Angina at rest I20.89 Left upper extremity numbness R20.0 Type 2 diabetes mellitus with peripheral neuropathy E11.42
[2025-04-08 11:09] VITALS: O2SAT 93
[2025-04-08] MEDS: SPIRONOLACTONE 25 MG TAB PO SCH (13:01)
--- NOTE | 2025-04-08 15:08 | Cardiology Consultation ---
Date of Consultation April 08, 2025 Assessment & Plan (1) Atypical chest pain: (2) CAD (coronary artery disease): (3) Essential hypertension: (4) Dyslipidemia: (5) Aortic regurgitation: Plan ASSESSMENT/PLAN: 1. Atypical chest pain: Symptoms occurred at rest. ECG, troponin, echo unremarkable. No recurrent symptoms despite mild ambulation. No indication for urgent cardiac catheterization. Suggested stress test, such as stress echo. She declines for now would like to be discharged home. If she has recurrent symptoms, she was advised to call 911. Recommend that she follow-up closely with her primary medication care manager. 2. CAD: Described as nonobstructive in the past with proximal LAD 50% stenosis. No definite angina as above. Atypical symptoms. Continue aspirin 81 mg daily. Continue beta-lien and ARB. Statin intolerant. 3. Dyslipidemia: LDL severely elevated. She states that she is intolerant to statin therapy, Zetia, and Repatha. Recommend follow-up with her primary medication care manager. Mediterranean diet. Regular cardiovascular exercise as tolerat ed. 4. Hypertension: Blood pressure reasonably controlled. Continue home regimen. 5. Aortic regurgitation: Nonsevere. Can follow-up in the outpatient setting for surveillance purposes. 6. Disposition: She very much wants to go home and declines any further inpatient testing for her atypical chest pain. Recommended that she ambulate briskly in the hallways to monitor for symptoms. Notified by nursing staff after this initial visit that she ambulated in the hallways without chest pain. Patient care communicated with primary hospitalist, Dr. Alexander. Follow-up with Dr. Whittaker. Today's visit was 45 minutes in duration, which includes [id number] time, counseling patient, coordinating care, reviewing multiple records, and completing documentation. Thank you for allowing me to participate in the care of your patient. Please call for any other questions or concerns. Sincerely, Min Chaidez M.D. History of Present Illness Reason for Consultation: chest pain Requesting Physician: Nguyen Sapp PA-C Attending Physician: Ramirez Alexander, DO History of Present Illness Mrs. Saucedo is a very pleasant 75-year-old female with a history significant for nonobstructive CAD, hypertension, dyslipidemia, aortic regurgitation. Her primary medication care manager is Dr. Whittaker. She was hospitalized on 04/07/2025 with left shoulder, left arm, and chest pain. The morning before presentation, she developed left shoulder and left arm pain with left hand numbness. It woke her up from sleep. It lasted 5 minutes before spontaneously resolving. Later throughout the day, she would intermittently have recurrent symptoms which at times would include a mild chest heaviness. Symptoms occurred at rest. On 1 occasion she had a "prickly" sensation in her face. Symptoms would last approximately 2 minutes before spontaneously resolving. She then had another episode lasting approximately 5 minutes, which worried her, prompting her to come to the emergency department. She admits that she has had similar symptoms approximately 1 year ago. All symptoms have occurred at rest. She has not had any symptoms with exertion such as walking, although she admits that she does not exercise. Overnight, she had no further symptoms. She was seen on 04/08/2020 5 in the afternoon for this consultation and had no symptoms throughout the day. She was able to ambulate in her room without symptoms. She admits that she had 2 episodes of mild nausea the day prior to presentation with her other symptoms as described. She had ankle swelling a week ago but it had since resolved. She had numbness in her legs in the past and was found to have B12 deficiency. With supplementation, symptoms have improved. She does not exercise but she is active within her home. She reports intolerance to Zetia, statin therapy, and Repatha. She denies melena, hematochezia, hematuria, syncope, near syncope, palpitations, or shortness of breath. When I initially walked in the room, she inquired if she could be discharged. Review of systems: As above. Family history: Sister had CA in her 70s. Father had CA. Social history: She denies tobacco, alcohol, drug abuse. Lives at home with her . 3 children. Her (Gian) was present at the bedside. Allergies Allergy/AdvReac Type Severity Reaction Status Date / Time raloxifene [From Evista] Allergy Intermediate edema Verified 03/20/25 13:03 metformin AdvReac Severe Diarrhea Verified 03/20/25 13:03 amlodipine AdvReac Intermediate Rash Verified 03/20/25 13:03 atorvastatin [From Lipitor] AdvReac Intermediate myalgia Verified 03/20/25 13:03 chlorthalidone AdvReac Intermediate Joint Pain Verified 03/20/25 13:03 ezetimibe [From Zetia] AdvReac Intermediate myalgias Verified 03/20/25 13:03 fluvastatin AdvReac Intermediate myalgias Verified 03/20/25 13:03 hydrochlorothiazide AdvReac Intermediate Abdominal Verified 03/20/25 13:03 Pain levothyroxine AdvReac Intermediate MUSCLE Verified 03/20/25 13:03 STIFFNESS/PAIN lisinopril AdvReac Intermediate dry cough Verified 03/20/25 13:03 rosuvastatin AdvReac Intermediate myalgias Verified 03/20/25 13:03 simvastatin AdvReac Intermediate myalgias Verified 03/20/25 13:03 pravastatin AdvReac Diarrhea Uncoded 03/20/25 13:03 Home Medications Medication Instructions Recorded Confirmed Type albuterol sulfate 90 mcg/actuation 2 puffs inhalation Q4H PRN 05/13/19 04/08/25 History aerosol inhaler shortness of breath or wheezing #1 g aspirin 81 mg tablet,delayed 81 mg PO HS 07/27/19 04/08/25 History release acetaminophen 325 mg tablet 325 mg PO QID PRN Pain 05/08/23 04/08/25 History (Tylenol) ondansetron 4 mg disintegrating 4 mg PO Q8H PRN Nausea 05/08/23 04/08/25 History tablet cyanocobalamin (vitamin B-12) 1,000 mcg IM Q30D 12/11/23 04/08/25 History 1,000 mcg/mL injection solution telmisartan 20 mg tablet 20 mg PO BID #180 tabs 05/21/24 04/08/25 Rx metoprolol succinate 25 mg 12.5 mg (1/2 x 25 mg) PO BID #90 08/11/24 04/08/25 Rx tablet,extended release 24 hr tabs spironolactone 25 mg tablet 25 mg PO QAM #90 tabs 09/29/24 04/08/25 Rx omeprazole 20 mg capsule,delayed 20 mg PO QAM #90 caps 01/27/25 04/08/25 Rx release cyanocobalamin (vitamin B-12) 1,000 mcg PO DAILY #30 caps 03/24/25 04/08/25 Rx 1,000 mcg capsule Patient History Medical History Statin myopathy Hx of vertigo "has gotten better" Urinary incontinence Thyroid nodule Sensory polyneuropathy Peripheral arterial disease Osteopenia Multiple pulmonary nodules Insomnia Diabetes type 2, controlled diet controlled Hypertension Dyslipidemia GERD (gastroesophageal reflux disease) Cervical radicular pain "has gotten better, due to arthritis in her neck" Asthma inh prn>rare use Ascending aorta dilatation Aortic regurgitation History of anxiety Holley syndrome CAD (coronary artery disease) f/u khris whittaker cardio History of nephrolithiasis no sx History of colitis History of COVID-19 diagnosed 05/04/2022 @ [facility]--head pain, severe bone pain, slight cough, fatigue--did take antiviral--no symptoms now Hx of endometriosis BCC (basal cell carcinoma) hx Surgical History Hx of cardiac cath 2019, [facility], no stents; f/u khris whittaker cardio History of esophagogastroduodenoscopy (EGD) History of colonoscopy 05/2023 S/P Mohs surgery for basal cell carcinoma History of total hysterectomy with removal of both tubes and ovaries Family History Father , 79 Hyperlipidemia Myocardial infarction Sister , 61 Ovarian cancer Breast cancer Benign adenomatous polyp of large intestine Family history of reaction to anesthesia difficulty waking Daughter Holley syndrome Son Colorectal cancer, Onset Age: 47 Holley syndrome Mother , 69 Aortic aneurysm Heart disease Hypertension Denies family history of Prostate cancer Lung cancer Social History Smoking Status: Never smoker Second Hand Exposure: Yes (hx); Do You Dip or Chew Tobacco: No; Hx Alcohol Use: No Hx Substance Use: No Preferred Language: Scottish Communication Ability: Effective Visual Impairment: No Limitations Hearing Ability: Normal Immersion Metalcleaner Required: No Beliefs That Will Affect Care: None marital status: Current Living Situation: Spouse current occupational status: retired Feels Safe at Home: Yes Childhood Exposure to Second-Hand Smoke: Yes Diet: regular Diet Comment: regular caffeine: Yes (tea 1 cup per day.) during the past year weight has: remained stable Dental Care, Regularly: Yes Physical Activity Frequency: 3-4 Times per Week Seatbelt Use: always Sunscreen Use: Yes Assistive Devices: None Physical Exam Physical Exam: Gen.: No acute distress. Alert and oriented. HEENT: Anicteric sclera. Neck: No JVD. No bruits. Normal carotid upstrokes bilaterally. Cardiac: Regular. Normal S1-S2. No murmurs, rubs, or gallops. Pulmonary: Clear to auscultation bilaterally without wheezes, rales, or rhonchi. Abdomen: Soft, nontender, nondistended, with normoactive bowel sounds. No bruits noted. Extremities: 2+ radial pulses bilaterally. 2+ posterior tibialis pulses bilaterally. No edema or cyanosis. Psychiatric: Affect appears appropriate. Chest: Nontender. Results & Data Vital Signs (Past 12 Hours) Vital Signs Temp Pulse Pulse Resp BP BP Pulse Ox 04/08/25 13:28 63 04/08/25 11:08 36.6 C 59 L 18 138/62 93 04/08/25 09:01 36.6 C 54 L 16 134/74 94 04/08/25 08:58 57 L 04/08/25 07:30 56 L 16 137/77 96 04/08/25 07:27 54 L 04/08/25 03:30 Pulse Ox O2 Del Method O2 Del Method 04/08/25 13:28 04/08/25 11:08 Room Air 04/08/25 09:01 Room Air 04/08/25 08:58 04/08/25 07:30 04/08/25 07:27 04/08/25 03:30 96 Room Air Laboratory Results Laboratory Results - last 48 hr 04/07/25 04/08/25 04/08/25 17:34 04:07 08:13 WBC 8.82 8.16 RBC 4.31 3.83 L Hgb 12.6 11.4 L Hct 38.2 33.6 L MCV 88.6 87.7 MCH 29.2 29.8 MCHC 33.0 33.9 RDW Std Deviation 42.3 42.1 RDW Coeff of Maggi 13.1 13.1 Plt Count 311 265 MPV 9.5 9.7 Immature Gran % (Auto) 0.2 0.2 Neut % (Auto) 63.0 50.3 Lymph % (Auto) 26.6 37.9 Andrews % (Auto) 8.2 8.7 Eos % (Auto) 1.5 2.5 Baso % (Auto) 0.5 0.4 Neut # (Auto) 5.56 4.11 Lymph # (Auto) 2.35 3.09 Andrews # (Auto) 0.72 H 0.71 H Eos # (Auto) 0.13 0.20 Baso # (Auto) 0.04 0.03 Immature Gran # (Auto) 0.02 0.02 PT 10.7 INR 1.0 APTT 27 PTT Ratio 1.0 Sodium 140 139 Potassium 4.1 3.9 Chloride 106 107 Carbon Dioxide 26 27 Anion Gap 8 5 BUN 12 12 Creatinine 0.91 0.89 Est Cr Clr Drug Dosing 49.6 50.7 eGFR 65.38 67.15 BUN/Creatinine Ratio 13.2 13.5 Glucose 133 H 107 H Calcium 9.6 9.2 Magnesium 2.1 2.0 Total Bilirubin 0.4 AST 21 ALT 14 Alkaline Phosphatase 84 Troponin I High Sens 4.0 3.5 3.3 Total Protein 7.5 Albumin 4.2 Globulin 3.3 Albumin/Globulin Ratio 1.3 TSH 4.875 H Free T4 0.72 Diagnostic Findings ECHO 04/08/25: 1. Normal left ventricular size and systolic function. EF 60-65%. No regional wall motion abnormalities. No left ventricular hypertrophy. 2. Mild aortic regurgitation. 3. Mild mitral regurgitation. 4. Normal estimated right ventricular systolic pressure. 5. No prior study available for comparison. Telemetry personally reviewed: Sinus rhythm. ECG personally reviewed 04/07/2025: Sinus rhythm 73 bpm. Normal ECG. Labs reviewed and notable for normal high-sensitivity troponin x 3, normal potassium, normal renal function, normal transaminase levels, stable TSH, severely elevated LDL, very mild anemia. History and physical report reviewed. Outpatient cardiology note reviewed from 09/29/2024. Chest x-ray 04/07/2025: No active disease per radiology. Medications Administered Discontinued Medications Acetaminophen (Acetaminophen 325 Mg Tab) 650 mg PO Q4H PRN PRN Reason: Pain or Fever Stop: 05/07/25 22:14 Last Admin: 04/08/25 15:47 Dose: 650 mg Documented By: BREANNA Aspirin (Aspirin Chew 324 Mg) 324 mg PO NOW STA Stop: 04/07/25 18:33 Last Admin: 04/07/25 18:36 Dose: 324 mg Documented By: CHARLES Losartan Potassium (Losartan Potassium 25 Mg Tab) 25 mg PO BID JACOB Stop: 05/07/25 22:14 Last Admin: 04/08/25 12:50 Dose: 25 mg Documented By: Admin: 04/07/25 23:04 Dose: 25 mg Documented By: LUIS MIGUEL Metoprolol Succinate (Metoprolol Succ 25mg Ext Rel Tab) 12.5 mg PO BID [facility] Stop: 05/07/25 22:14 Last Admin: 04/08/25 13:00 Dose: Not Given Documented By: Admin: 04/07/25 23:03 Dose: 12.5 mg Documented By: LUIS MIGUEL Pantoprazole Sodium (Pantoprazole 40 Mg Tab) 40 mg PO QAM [facility] Stop: 05/08/25 08:59 Last Admin: 04/08/25 12:50 Dose: 40 mg Documented By: BREANNA Spironolactone (Spironolactone 25 Mg Tab) 25 mg PO QAM [facility] Stop: 05/08/25 08:59 Last Admin: 04/08/25 13:01 Dose: Not Given Documented By: BREANNA PG Care Time/CCT Total # of Minutes Spent Total Time Spent with Patient: Total time spent is greater than 50% in coordination of care (as documented) at patient's floor/unit and/or counseling patient: Coding Level of Care Code 33635 INT INP/OBS CARE 2/55MIN Diagnoses Atypical chest pain R07.89 CAD (coronary artery disease) I25.10 Essential hypertension I10 Dyslipidemia E78.5 Aortic regurgitation I35.1
--- NOTE | 2025-04-08 15:09 | XCELERA ---
[id number]
[2025-04-08 15:17] VITALS: BP 124/62; PULSE 65; RESP 20; TEMP 98.2
[2025-04-08] MEDS: ACETAMINOPHEN 325 MG TAB PO PRN (15:47)
[2025-04-08] MEDS ORDERED: ASPIRIN 81 MG ECTAB PO SCH (21:00)
--- NOTE | 2025-04-09 05:42 | Electrocardiogram Report ---
Test Reason : Blood Pressure : */* mmHG Vent. Rate : 73 BPM Atrial Rate : 73 BPM P-R Int : 172 ms QRS Dur : 78 ms QT Int : 390 ms P-R-T Axes : -7 -2 28 degrees QTcB Int : 429 ms Normal sinus rhythm Normal ECG When compared with ECG of 25-Jun-2023 16:57, No significant change was found Confirmed by Craig Chaidez ([id number]) on 04/09/2025 5:42:13 AM Referred By: REFERRED SELF Confirmed By: Craig Chaidez
--- NOTE | 2025-04-09 09:02 | Discharge Summary ---
Discharge Summary Date of Service April 09, 2025 Principal Dx & Hospital Course #1 = Principal Diagnosis (1) Chest pain, rule out acute myocardial infarction: (2) Angina at rest: (3) Left upper extremity numbness: (4) Type 2 diabetes mellitus with peripheral neuropathy: Plan In summary this is a 75-year-old female admitted for ACS rule out given concerning presentation of anginal equivalent symptoms Initial onset of symptoms awoke the patient in the morning on 04/07 at approximately 0200 hrs. with left upper extremity aching, left hand numbness, and anterior chest wall heaviness; throughout the day on 04/07 seasonal a ssociated with any particular activity nor specific alleviating factors; multiple comorbidities and established diagnoses contribute to the risk for ACS; initial EKG was without concerning findings; troponin trend was unremarkable; antoni score 106 - Maintain continuous monitor tech - Nursing to contact attending if patient develops recurrent or new anginal equivalent - continue aspirin 81 mg p.o. daily - TTE was unremarkable - cardiology consulted Resume home metoprolol succinate, spironolactone, telmisartan Admission HPI Per Admitting Provider Patient is a 75-year-old female with past medical history of PAD, CAD, prediabetes, HTN. patient presented due to chest pain that radiated down her left arm close left hand numbness that began approximately 2 AM 04/07 but was intermittent throughout the day. She describes it as dull/achy however occasionally does become stabbing and does have associated nausea and dyspnea. He does have dyspnea on exertion and dizziness for the past few weeks. Most recent echo 12/2023 and cardiac cath July 2020 revealed 50% proximal LAD stenosis. She is being admitted for further workup including echocardiogram and potential cardiac cath. Patient seen at bedside. She states she woke up with this chest pain that radiated down her left arm into her hand that made it numb. The chest pain went away on its own. It did come and go all day which is what she was concerned and came in. She describes it as dull and achy however stabbing at some points. She did have nausea with associated with it 2 times. She did have associated shortness of breath with it multiple times today. She endorses intermittent dyspnea on exertion for several months that is unchanged. She also has had some dizziness for the past few weeks. She denies any chest pain on exertion for the past few months, she has had pain similar over the past few years. She had a cardiac cath in 2019 which showed 50% proximal LAD stenosis and she follows with Dr. Whittaker. She stated she does have a history of prediabetes however is not on any medications. She denies any smoking or alcohol use. She stated her sister and father both from an NE and her mother had heart and from an abdominal aortic aneurysm. She is due for her evening medications which include metoprolol and telmisartan, she was loaded with aspirin in the ED. Upon evaluation patient had 3 episodes of several seconds of intermittent chest pain that resolved on its own after only seconds. She wishes to be DNR/DNI. Discharge Exam General: Adult female in no acute distress Vital Signs: reviewed HEENT: pupils equally round reactive to light; extraocular motion intact; moist mucous membranes Neck: no appreciable JVD Pulmonary: symmetric chest wall excursion without restriction; clear to auscultation bilaterally Cardiovascular: regular rate and rhythm without murmurs, rubs, or gallops; S1 and S2 normal; bilateral radial and posterior tibial pulse 2+ Neurologic: CN II-XII grossly intact Discharge Plan Discharge Items Patient Disposition: Home - Self-Care Reason For Visit: CHEST PAIN Discharge Diagnosis: Chest pain, ACS rule out Condition on Discharge: Good Activity: Resume your previous activity Non-emergency contact: Primary Care Provider and Sales Force Developer Call non-emergency contact if: you have any medication questions Follow-up/Referrals: Jeffery Mann CRNP [Primary Care Provider] - 04/21/25 8:20 am Craig Chaidez MD [Physician] - Diet: Heart Healthy Fluids: 1800ml (7 cups) Addtl Attending Provider Instructions: Please maintain your previous medication regimen and follow up with your PCP as well as Cardiology offices. Pending Studies at Discharge: No Stand-Alone Forms: My [facility] [employer] Medications and DC Order Prescriptions: Continued telmisartan 20 mg tablet 20 mg PO BID Qty: 180 3RF metoprolol succinate 25 mg tablet extended release 24 hr 12.5 mg PO BID Qty: 90 2RF omeprazole 20 mg capsule,delayed release(DR/EC) 20 mg PO QAM Qty: 90 1RF cyanocobalamin (vitamin B-12) 1,000 mcg capsule 1,000 mcg PO DAILY Qty: 30 0RF Patient Comments: 04/08- otc unable to verify albuterol sulfate 90 mcg/actuation HFA aerosol inhaler 2 puffs inhalation Q4H PRN (Reason: shortness of breath or wheezing) Qty: 1 Patient Comments: 04/08- no fill history unable to verify every 4-6 hrs spironolactone 25 mg tablet 25 mg PO QAM Qty: 90 3RF aspirin 81 mg Tablet,Delayed Release (Dr/Ec) 81 mg PO HS Hold Instructions: high bp- per cardiolgist Patient Comments: 04/08- otc unable to verify ondansetron 4 mg tablet,disintegrating 4 mg PO Q8H PRN (Reason: Nausea) Patient Comments: 04/08- no fill history unable to verify acetaminophen [Tylenol] 325 mg Tablet 325 mg PO QID PRN (Reason: Pain) Patient Comments: 04/08- otc unable to verify cyanocobalamin (vitamin B-12) 1,000 mcg/mL solution 1,000 mcg IM Q30D Patient Comments: 04/08- no fill history unable to verify Discharge Orders: Discharge Order (Routine); Ordered 04/08/25 Ordered By: Ramirez Graham/Other Patient Handouts: ED Angina, Stable Admission Data Admit Date/Time: 04/07/25 19:41 Attending Provider: Ramirez Alexander Admit Provider: Giacomo Clifton Primary Care Provider: Jeffery Mann Other Providers: Giacomo Clifton; Rolf Vasquez Jr Other Interventions: Discharge Summary Assessment (RN) Last Done: 04/08/25 16:13 Hospital Stay Data Consultations 04/07/25 20:05 ED Decision to Admit Stat 04/07/25 22:15 Consult Cardiology Routine Pending Results Patient Have Any Pending Studies at Discharge: No Discharge Instructions Given to Patient (Per Discharging Provider) Please maintain your previous medication regimen and follow up with your PCP as well as Cardiology offices. Total Time Total Time Spent Total Time Spent (In Minutes): 45 Coding Level of Care Code 67013 INP/OBS DISCH >30 MIN Diagnoses Chest pain, rule out acute myocardial infarction R07.9 Angina at rest I20.89 Left upper extremity numbness R20.0 Type 2 diabetes mellitus with peripheral neuropathy E11.42
== END 2025-04-08 17:11 | disposition home or self-care (01) ==
LOC: ED 17:21 → EDINP 17:21 → SUATTDRO 19:41 → 2N 22:15

== ENCOUNTER 2025-08-02 12:03 | Observation (INO) ==
[2025-08-02] MEDS: SODIUM CHLORIDE 0.9% 1,000 ML IV ONE ×2 (12:27→20:41)
[2025-08-02 12:29] LABS: Appearance Urine Clear (Clear); Glucose Urine UA Negative (Negative)
[2025-08-02 12:31] LABS: Hematocrit (blood only) 38.0 % (37.0-47.0); Hemoglobin 12.8 g/dL (12.0-16.0); Immature Granulocytes # (auto) 0.01 K/uL (0.01-0.20); Immature Granulocytes % (auto) 0.1 %; Mean Corpuscular Hemoglobin 29.4 pg (25.0-34.0); Mean Corpuscular Volume 87.2 fL (80.0-100.0); Platelet Count 299 K/uL (130-400); RDW Standard Deviation 39.7 fL (36.4-46.3); Red Blood Count 4.36 M/uL (4.20-5.40); White Blood Count 7.09 K/ul (4.8-10.8)
[2025-08-02 12:55] LABS: Alanine Aminotransferase 13.0 U/L (7-52); Albumin Globulin Ratio 1.3 (0.9-2); Albumin Level 4.2 gm/dl (3.4-5.0); Alkaline Phosphatase 79.0 U/L (34-104); Anion Gap 6.0 (3-11); Bilirubin,Total 0.8 mg/dl (0.2-1.0); Blood Urea Nitrogen 9.0 mg/dl (6-23); Calcium 9.7 mg/dl (8.6-10.3); Carbon Dioxide 26.0 mmol/L (21-32); Chloride 93.0 mmol/L (98-107); Creatinine Clr Calc Pharmacy 47.8 ml/min; Globulin 3.2 gm/dl (2.5-4.0); Glucose 114.0 mg/dl (70-99(Fasting)); Lipase 10.0 U/L (11-82); Magnesium 1.9 mg/dl (1.7-2.4); Potassium 4.1 mmol/L (3.5-5.1); Sodium 125.0 mmol/L (136-145); Total Protein 7.4 gm/dl (6.0-8.3)
[2025-08-02 12:56] LABS: INR 1.0 (0.9-1.1); Prothrombin Time 11.0 Seconds (9.0-12.0)
[2025-08-02 13:10] LABS: Thyroid Stimulating Hormone 4.684 uIu/ml (0.300-4.500)
[2025-08-02 13:44] LABS: T4 Free Thyroxine 0.72 ng/dl (0.61-1.60)
--- NOTE | 2025-08-02 13:55 | XRay Report ---
Clinical History: Chest pain Technique: A frontal view of the chest was obtained Findings: There are no confluent pulmonary infiltrates. The heart size is within normal limits. No pleural effusion or pneumothorax is seen. There is no definite pulmonary nodule. No fracture is noted. No foreign body is seen Impression: No active disease Electronically signed by Jose Canales 08-02-2025 13:55 PM
--- NOTE | 2025-08-02 14:35 | Emergency Department Note ---
Impression & Plan Hyponatremia, Dizziness, Confusion ED Provider Note NAME: CAROL MORAN AGE: 75 SEX: F : 1950 ARRIVES VIA: Walk-In INFORMANT: Patient ED PROVIDER(S): Angel Wilcox MD CHIEF COMPLAINT: dizziness PLAN: Disposition: Admit MEDICAL DECISION MAKING: The patient is a 75-year-old woman with a past medical history of type 2 diabetes with peripheral neuropathy, hypertension, hyperlipidemia, Mnire's disease, asthma, ascending aortic dilatation who presents to the emergency department worsening dizziness and confusion that began last night where she feels she is dehydrated. She reports her lips are dry. She reports she has had a bland diet and poor oral intake since being seen in this emergency department on 07/09 where she was diagnosed with colitis. She denies any continued diarrhea. She denies cough or congestion. She denies chest pain or shortness of breath. She denies nausea or vomiting. The patient is in no acute distress, afebrile with blood pressure 160s/80s and vital signs otherwise stable. On my assessment the patient is resting comfortably in her hospital bed watching the [employer] football game. She appears clinically dry. She exhibits no focal neurologic deficits. EKG without overt acute ischemia. CXR negative for acute cardiopulmonary process per my personal preliminary review/interpretation. WBC, H/H and platelets within normal limits. Chemistry without metabolic acidosis. Sodium 125 with serum osmolality of 267 with suspicion for poor solute intake. LFTs unremarkable. High-sensitivity troponin 4.0, within normal limits. UA without convincing evidence of infection. Urine osmolality is subsequently diluted and urine sodium is not elevated and so hyponatremia most likely related to poor solute intake. Given the patient's low sodium the patient does agree with plan for admission for further management. Case was discussed with Kailey Moore [facility] PAC, with Dr. Lau [facility] hospitalist who will evaluate the patient for admission. Further management per admitting team. Triage Nursing notes reviewed and agree them. Prior/external medical records reviewed Vital Signs: reviewed Differential diagnosis: Benign positional vertigo, dehydration, hypovolemia, anemia, tumor, infection, hypoglycemia, electrolyte abnormalities, cardiac sources, intracerebral event, toxicologic, neurologic, as well as other pathologies. ER treatment provided: See below. Diagnostics interpreted by me: ECG: Normal sinus rhythm, 64 bpm, no ectopy, no overt ST elevation or depression, QTc 410, QRS 84. Cardiac Monitoring: An order for continuous cardiac monitoring was placed and demonstrated normal sinus rhythm, 64 bpm, no ectopy Laboratory studies: See below Imaging studies: See below Consultation(s): ZOEY Ahn PAC, with Dr. Lau [facility] hospitalist HPI: Per MDM. ROS: See above HPI for pertinent positives & negatives. A total of 10 systems reviewed and were otherwise negative. VITALS:See Below PHYSICAL EXAMINATION: GENERAL: Awake, alert, well-appearing, in no distress HENT: Normocephalic, atraumatic. Oropharynx with dry mucous membranes and otherwise unremarkable. EYES: Normal conjunctiva. Sclera non-icteric. EOMI. No nystamgus. PEARRL. NECK: Supple. No nuchal rigidity. FROM. No JVD. RESPIRATORY: Clear to auscultation. CARDIAC: Regular rate, normal rhythm. Extremities warm and well perfused. Pulses equal. ABDOMEN: Soft, non-distended. No tenderness to palpation. No rebound or guarding. No masses. MUSCULOSKELETAL: Chest examination reveals no tenderness. The back is symmetrical on inspection without obvious abnormality. There is no CVA tenderness to palpation. No joint edema. LOWER EXTREMITIES: Calves are equal size bilaterally and non-tender. No edema. No discoloration. NEURO: Cranial nerves II-XII grossly intact. 5/5 strength and SILT x 4 extremities. Cerebellar function intact including [id number], alternating palms, [id number]. SKIN: No rash or jaundice noted. Angel Wilcox MD Past Med/Surg History Problem List (Updated 08/02/25 @ 16:54 by Angel Wilcox MD) Confusion (Acute) Dizziness (Acute) Hyponatremia (Acute) Chronic kidney disease Thyroid nodule Chest pain syndrome Atypical chest pain (Acute) Coronary atherosclerosis Type 2 diabetes mellitus with peripheral neuropathy (Chronic) Essential hypertension Xanthelasma of eyelid, bilateral (Chronic) Cervical radicular pain (Chronic) Ascending aorta dilatation (Chronic) Moderate aortic insufficiency (Chronic) Thyroid nodule (Chronic) Elevated TSH Sensory polyneuropathy (Chronic) B12 deficiency (Chronic) Meniere disease (Chronic) Obesity Peripheral arterial disease (Chronic) Urinary incontinence (Chronic) Anxiety Aortic regurgitation Asthma Bilateral sensorineural hearing loss "ringing in the ears" Dyslipidemia Gastroesophageal reflux disease Insomnia Holley syndrome Multiple pulmonary nodules pt denies Osteopenia Medical History Chest pain, rule out acute myocardial infarction Angina at rest Left upper extremity numbness Statin myopathy Hx of vertigo "has gotten better" Urinary incontinence Thyroid nodule Sensory polyneuropathy Peripheral arterial disease Osteopenia Multiple pulmonary nodules Insomnia Diabetes type 2, controlled diet controlled Hypertension Dyslipidemia GERD (gastroesophageal reflux disease) Cervical radicular pain "has gotten better, due to arthritis in her neck" Asthma inh prn>rare use Ascending aorta dilatation Aortic regurgitation History of anxiety Holley syndrome CAD (coronary artery disease) f/u [facility] History of nephrolithiasis no sx History of colitis History of COVID-19 diagnosed 05/04/2022 @ [facility]--head pain, severe bone pain, slight cough, fatigue--did take antiviral--no symptoms now Hx of endometriosis BCC (basal cell carcinoma) hx Surgical History Hx of cardiac cath 2019, [facility], no stents; f/u [facility] History of esophagogastroduodenoscopy (EGD) History of colonoscopy 05/2023 S/P Mohs surgery for basal cell carcinoma History of total hysterectomy with removal of both tubes and ovaries Family History Father , 79 Hyperlipidemia Myocardial infarction Sister , 61 Ovarian cancer Breast cancer Benign adenomatous polyp of large intestine Family history of reaction to anesthesia difficulty waking Daughter Holley syndrome Son Colorectal cancer, Onset Age: 47 Holley syndrome Mother , 69 Aortic aneurysm Heart disease Hypertension Denies family history of Prostate cancer Lung cancer Social History Smoking Status: Never smoker Second Hand Exposure: Yes (hx); Do You Dip or Chew Tobacco: No; Hx Alcohol Use: No Hx Substance Use: No Preferred Language: Greek Communication Ability: Effective Visual Impairment: No Limitations Hearing Ability: Normal Hydropulper Required: No Beliefs That Will Affect Care: None marital status: Current Living Situation: Spouse current occupational status: retired Feels Safe at Home: Yes Childhood Exposure to Second-Hand Smoke: Yes Diet: regular Diet Comment: regular caffeine: Yes (tea 1 cup per day.) during the past year weight has: remained stable Dental Care, Regularly: Yes Physical Activity Frequency: 3-4 Times per Week Seatbelt Use: always Sunscreen Use: Yes Assistive Devices: None Allergies Allergies Allergy/AdvReac Type Severity Reaction Status Date / Time raloxifene [From Evista] Allergy Intermediate edema Verified 07/28/25 12:54 metformin AdvReac Severe Diarrhea Verified 07/28/25 12:54 amlodipine AdvReac Intermediate Rash Verified 07/28/25 12:54 atorvastatin [From Lipitor] AdvReac Intermediate myalgia Verified 07/28/25 12:54 chlorthalidone AdvReac Intermediate Joint Pain Verified 07/28/25 12:54 ezetimibe [From Zetia] AdvReac Intermediate myalgias Verified 07/28/25 12:54 fluvastatin AdvReac Intermediate myalgias Verified 07/28/25 12:54 hydrochlorothiazide AdvReac Intermediate Abdominal Verified 07/28/25 12:54 Pain levothyroxine AdvReac Intermediate MUSCLE Verified 07/28/25 12:54 STIFFNESS/PAIN lisinopril AdvReac Intermediate dry cough Verified 07/28/25 12:54 rosuvastatin AdvReac Intermediate myalgias Verified 07/28/25 12:54 simvastatin AdvReac Intermediate myalgias Verified 07/28/25 12:54 pravastatin AdvReac Diarrhea Verified 08/02/25 16:12 Home Meds Home Medications Medication Instructions Recorded Confirmed albuterol sulfate 90 mcg/actuation 2 puffs inhalation Q4H PRN 05/13/19 08/02/25 aerosol inhaler shortness of breath or wheezing #1 g aspirin 81 mg tablet,delayed 81 mg PO HS 07/27/19 08/02/25 release cyanocobalamin (vitamin B-12) 1,000 mcg IM Q30D 12/11/23 08/02/25 1,000 mcg/mL injection solution metoprolol succinate 25 mg 12.5 mg PO BID 07/09/25 08/02/25 tablet,extended release 24 hr telmisartan 20 mg tablet 20 mg PO BID 07/09/25 08/02/25 Previous Rx's Medication Instructions Recorded spironolactone 25 mg tablet 25 mg PO QAM #90 tabs 09/29/24 levothyroxine 25 mcg tablet 25 mcg PO DAILY #30 tabs 05/06/25 omeprazole 20 mg capsule,delayed 20 mg PO QAM #90 caps 07/22/25 release ondansetron 4 mg disintegrating 4 mg PO Q8H PRN Nausea #30 tabs 07/28/25 tablet Results & Data (ED) Vital Signs Vital Signs - 24 hr 08/02/25 12:03 08/02/25 12:22 08/02/25 12:24 Temperature 36.6 C Temperature Source Temporal Artery Scan Pulse Rate 69 61 Pulse Rate [Apical] 59 L Pulse Rate from SpO2 Sensor Respiratory Rate 18 20 Respiratory Effort / Characteristics Non-Labored Spontaneous Respiratory Pattern Regular Blood Pressure 167/84 H Blood Pressure [Right Arm] 142/63 H Blood Pressure Mean 111 Blood Pressure Mean [Right Arm] 89 Pulse Oximetry 95 96 96 Oxygen Delivery Method Room Air Room Air Sepsis Recent Fever Within 48 Hours No Sepsis New/Unexplained Change in Mental Status N/A Sepsis Action Taken by Nursing No Action Required 08/02/25 12:45 08/02/25 12:49 08/02/25 12:51 Temperature Temperature Source Pulse Rate 60 60 60 Pulse Rate [Apical] Pulse Rate from SpO2 Sensor 61 Respiratory Rate 24 15 Respiratory Effort / Characteristics Respiratory Pattern Blood Pressure Blood Pressure [Right Arm] Blood Pressure Mean Blood Pressure Mean [Right Arm] Pulse Oximetry 97 97 Oxygen Delivery Method Sepsis Recent Fever Within 48 Hours Sepsis New/Unexplained Change in Mental Status Sepsis Action Taken by Nursing 08/02/25 13:00 08/02/25 13:00 08/02/25 13:00 Temperature Temperature Source Pulse Rate Pulse Rate [Apical] Pulse Rate from SpO2 Sensor Respiratory Rate Respiratory Effort / Characteristics Respiratory Pattern Blood Pressure 126/61 126/61 126/61 Blood Pressure [Right Arm] Blood Pressure Mean 90 90 90 Blood Pressure Mean [Right Arm] Pulse Oximetry Oxygen Delivery Method Sepsis Recent Fever Within 48 Hours Sepsis New/Unexplained Change in Mental Status Sepsis Action Taken by Nursing 08/02/25 13:00 08/02/25 13:00 08/02/25 13:00 Temperature Temperature Source Pulse Rate 58 L Pulse Rate [Apical] Pulse Rate from SpO2 Sensor 58 L Respiratory Rate 19 Respiratory Effort / Characteristics Respiratory Pattern Blood Pressure 126/61 126/61 Blood Pressure [Right Arm] Blood Pressure Mean 90 90 Blood Pressure Mean [Right Arm] Pulse Oximetry 97 Oxygen Delivery Method Sepsis Recent Fever Within 48 Hours Sepsis New/Unexplained Change in Mental Status Sepsis Action Taken by Nursing 08/02/25 13:12 08/02/25 13:21 08/02/25 13:30 Temperature Temperature Source Pulse Rate 60 58 L 61 Pulse Rate [Apical] Pulse Rate from SpO2 Sensor 59 L 59 L 61 Respiratory Rate 18 15 17 Respiratory Effort / Characteristics Respiratory Pattern Blood Pressure Blood Pressure [Right Arm] Blood Pressure Mean Blood Pressure Mean [Right Arm] Pulse Oximetry 97 97 97 Oxygen Delivery Method Sepsis Recent Fever Within 48 Hours Sepsis New/Unexplained Change in Mental Status Sepsis Action Taken by Nursing 08/02/25 13:31 08/02/25 13:31 08/02/25 13:31 Temperature Temperature Source Pulse Rate Pulse Rate [Apical] Pulse Rate from SpO2 Sensor Respiratory Rate Respiratory Effort / Characteristics Respiratory Pattern Blood Pressure 124/49 L 124/49 L 124/49 L Blood Pressure [Right Arm] Blood Pressure Mean 58 58 58 Blood Pressure Mean [Right Arm] Pulse Oximetry Oxygen Delivery Method Sepsis Recent Fever Within 48 Hours Sepsis New/Unexplained Change in Mental Status Sepsis Action Taken by Nursing 08/02/25 13:31 08/02/25 13:31 08/02/25 13:33 Temperature Temperature Source Pulse Rate 58 L Pulse Rate [Apical] Pulse Rate from SpO2 Sensor 58 L Respiratory Rate 19 Respiratory Effort / Characteristics Respiratory Pattern Blood Pressure 124/49 L 124/49 L Blood Pressure [Right Arm] Blood Pressure Mean 58 58 Blood Pressure Mean [Right Arm] Pulse Oximetry 97 Oxygen Delivery Method Sepsis Recent Fever Within 48 Hours Sepsis New/Unexplained Change in Mental Status Sepsis Action Taken by Nursing 08/02/25 13:42 08/02/25 13:51 08/02/25 14:00 Temperature Temperature Source Pulse Rate 58 L 59 L Pulse Rate [Apical] Pulse Rate from SpO2 Sensor 59 L 61 Respiratory Rate 15 18 Respiratory Effort / Characteristics Respiratory Pattern Blood Pressure 127/57 L Blood Pressure [Right Arm] Blood Pressure Mean 62 Blood Pressure Mean [Right Arm] Pulse Oximetry 96 97 Oxygen Delivery Method Sepsis Recent Fever Within 48 Hours Sepsis New/Unexplained Change in Mental Status Sepsis Action Taken by Nursing 08/02/25 14:00 08/02/25 14:00 08/02/25 14:00 Temperature Temperature Source Pulse Rate Pulse Rate [Apical] Pulse Rate from SpO2 Sensor Respiratory Rate Respiratory Effort / Characteristics Respiratory Pattern Blood Pressure 127/57 L 127/57 L 127/57 L Blood Pressure [Right Arm] Blood Pressure Mean 62 62 62 Blood Pressure Mean [Right Arm] Pulse Oximetry Oxygen Delivery Method Sepsis Recent Fever Within 48 Hours Sepsis New/Unexplained Change in Mental Status Sepsis Action Taken by Nursing 08/02/25 14:00 08/02/25 14:00 08/02/25 14:12 Temperature Temperature Source Pulse Rate 76 63 Pulse Rate [Apical] Pulse Rate from SpO2 Sensor 73 63 Respiratory Rate 22 15 Respiratory Effort / Characteristics Respiratory Pattern Blood Pressure 127/57 L Blood Pressure [Right Arm] Blood Pressure Mean 62 Blood Pressure Mean [Right Arm] Pulse Oximetry 95 96 Oxygen Delivery Method Sepsis Recent Fever Within 48 Hours Sepsis New/Unexplained Change in Mental Status Sepsis Action Taken by Nursing 08/02/25 14:21 08/02/25 14:30 08/02/25 14:30 Temperature Temperature Source Pulse Rate 63 Pulse Rate [Apical] Pulse Rate from SpO2 Sensor 63 Respiratory Rate 18 Respiratory Effort / Characteristics Respiratory Pattern Blood Pressure 139/69 139/69 Blood Pressure [Right Arm] Blood Pressure Mean 103 103 Blood Pressure Mean [Right Arm] Pulse Oximetry 96 Oxygen Delivery Method Sepsis Recent Fever Within 48 Hours Sepsis New/Unexplained Change in Mental Status Sepsis Action Taken by Nursing 08/02/25 14:30 08/02/25 14:30 08/02/25 14:30 Temperature Temperature Source Pulse Rate Pulse Rate [Apical] Pulse Rate from SpO2 Sensor Respiratory Rate Respiratory Effort / Characteristics Respiratory Pattern Blood Pressure 139/69 139/69 139/69 Blood Pressure [Right Arm] Blood Pressure Mean 103 103 103 Blood Pressure Mean [Right Arm] Pulse Oximetry Oxygen Delivery Method Sepsis Recent Fever Within 48 Hours Sepsis New/Unexplained Change in Mental Status Sepsis Action Taken by Nursing 08/02/25 14:30 08/02/25 14:42 08/02/25 14:51 Temperature Temperature Source Pulse Rate 61 63 62 Pulse Rate [Apical] Pulse Rate from SpO2 Sensor 56 L 64 62 Respiratory Rate 21 15 21 Respiratory Effort / Characteristics Respiratory Pattern Blood Pressure Blood Pressure [Right Arm] Blood Pressure Mean Blood Pressure Mean [Right Arm] Pulse Oximetry 95 96 95 Oxygen Delivery Method Sepsis Recent Fever Within 48 Hours Sepsis New/Unexplained Change in Mental Status Sepsis Action Taken by Nursing 08/02/25 15:00 08/02/25 15:00 08/02/25 15:00 Temperature Temperature Source Pulse Rate 63 Pulse Rate [Apical] Pulse Rate from SpO2 Sensor 61 Respiratory Rate 17 Respiratory Effort / Characteristics Respiratory Pattern Blood Pressure 138/67 138/67 Blood Pressure [Right Arm] Blood Pressure Mean 97 97 Blood Pressure Mean [Right Arm] Pulse Oximetry 95 Oxygen Delivery Method Sepsis Recent Fever Within 48 Hours Sepsis New/Unexplained Change in Mental Status Sepsis Action Taken by Nursing Laboratory Data Attestation: I reviewed the patient's lab results. 08/02/25 12:19 08/02/25 12:19 Lab Results 08/02/25 Range/Units 12:19 WBC 7.09 (4.8-10.8) K/ul RBC 4.36 (4.20-5.40) M/uL Hgb 12.8 (12.0-16.0) g/dL Hct 38.0 (37.0-47.0) % MCV 87.2 (80.0-100.0) fL MCH 29.4 (25.0-34.0) pg MCHC 33.7 (32.0-36.0) g/dL RDW Std Deviation 39.7 (36.4-46.3) fL RDW Coeff of Maggi 12.4 (11.5-14.5) % Plt Count 299 (130-400) K/uL MPV 9.7 (9.4-12.4) fL Immature Gran % (Auto) 0.1 % Neut % (Auto) 50.3 % Lymph % (Auto) 34.4 % [place] % (Auto) 10.9 % Eos % (Auto) 3.9 % Baso % (Auto) 0.4 % Neut # (Auto) 3.56 (1.40-6.50) K/uL Lymph # (Auto) 2.44 (1.20-3.40) K/uL [place] # (Auto) 0.77 H (0.11-0.59) K/uL Eos # (Auto) 0.28 (0.00-0.50) K/uL Baso # (Auto) 0.03 (0.00-0.20) K/uL Immature Gran # (Auto) 0.01 (0.01-0.20) K/uL PT 11.0 (9.0-12.0) Seconds INR 1.0 (0.9-1.1) Sodium 125 L (136-145) mmol/L Potassium 4.1 (3.5-5.1) mmol/L Chloride 93 L (98-107) mmol/L Carbon Dioxide 26 (21-32) mmol/L Anion Gap 6 (3-11) BUN 9 (6-23) mg/dl Creatinine 0.95 (0.6-1.2) mg/dl Est Cr Clr Drug Dosing 47.8 ml/min eGFR 62.09 BUN/Creatinine Ratio 9.5 L (10-20) Glucose 114 H (70-99(Fasting)) mg/dl Osmolality 267 L (280-300) mOsm/kg Calcium 9.7 (8.6-10.3) mg/dl Phosphorus 3.7 (2.5-4.9) mg/dl Magnesium 1.9 (1.7-2.4) mg/dl Total Bilirubin 0.8 (0.2-1.0) mg/dl AST 21 (13-39) U/L ALT 13 (7-52) U/L Alkaline Phosphatase 79 (34-104) U/L Troponin I High Sens 4.0 (0-14) pg/ml Total Protein 7.4 (6.0-8.3) gm/dl Albumin 4.2 (3.4-5.0) gm/dl Globulin 3.2 (2.5-4.0) gm/dl Albumin/Globulin Ratio 1.3 (0.9-2) Lipase 10 L (11-82) U/L TSH 4.684 H (0.300-4.500) uIu/ml Free T4 0.72 (0.61-1.60) ng/dl Urine Color Yellow Urine Appearance Clear (Clear) Urine pH 5.5 (4.5-7.5) Ur Specific [place] 1.005 (1.000-1.030) Urine Protein Negative (Negative) Urine Glucose (UA) Negative (Negative) Urine Ketones Negative (Negative) Urine Blood Negative (Negative) Urine Nitrite Negative (Negative) Urine Bilirubin Negative (Negative) Urine Urobilinogen Negative (Negative) Ur Leukocyte Esterase Negative (Negative) Urine Osmolality 130 L (500-800) mOsm/kg Ur Random Sodium 17 mmol/L Urine Comment Administered Medications Discontinued Medications Sodium Chloride (Nss) 1,000 mls @ 999 mls/hr IV .Q1H1M ONE Stop: 08/02/25 13:23 Last Admin: 08/02/25 12:27 Dose: 999 mls/hr Documented By: sak Imaging Data Radiologist's Impression: Chest X-Ray 12/21/25 12:22 Clinical History: Chest pain Technique: A frontal view of the chest was obtained Findings: There are no confluent pulmonary infiltrates. The heart size is within normal limits. No pleural effusion or pneumothorax is seen. There is no definite pulmonary nodule. No fracture is noted. No foreign body is seen Impression: No active disease Electronically signed by Jose Canales 08-02-2025 13:55 PM Discharge Plan Visit Data Chief Complaint: Dehydration Stated Complaint: DEHYDRATED ED Provider: Angel Wilcox Discharge Problem: Hyponatremia, Dizziness, Confusion Patient Disposition: Home - Self-Care Condition: Fair Forms Stand Alone Forms: My [facility], Important Visit Information Prescriptions Prescriptions: No Action levothyroxine 25 mcg tablet 25 mcg PO DAILY Qty: 30 2RF omeprazole 20 mg capsule,delayed release(DR/EC) 20 mg PO QAM Qty: 90 1RF albuterol sulfate 90 mcg/actuation HFA aerosol inhaler 2 puffs inhalation Q4H PRN (Reason: shortness of breath or wheezing) Qty: 1 Patient Comments: 04/12- no fill history unable to verify every 4-6 hrs spironolactone 25 mg tablet 25 mg PO QAM Qty: 90 3RF ondansetron 4 mg tablet,disintegrating 4 mg PO Q8H PRN (Reason: Nausea) Qty: 30 3RF aspirin 81 mg Tablet,Delayed Release (Dr/Ec) 81 mg PO HS Hold Instructions: high bp- per cardiolgist cyanocobalamin (vitamin B-12) 1,000 mcg/mL solution 1,000 mcg IM Q30D telmisartan 20 mg tablet 20 mg PO BID Rx Instructions: TAKE ONE TABLET BY MOUTH TWICE DAILY metoprolol succinate 25 mg tablet extended release 24 hr 12.5 mg PO BID Rx Instructions: TAKE 1/2 TABLET BY MOUTH TWICE DAILY Referrals Referrals: Jeffery Mann CRNP [Primary Care Provider] -
[2025-08-02] MEDS ORDERED: ONDANSETRON INJ 2 MG/ML 2 ML VIAL IV PRN (15:54)
[2025-08-02] MEDS ORDERED: ACETAMINOPHEN 325 MG TAB PO PRN (15:54)
--- NOTE | 2025-08-02 16:16 | History & Physical Report ---
Date of Service August 02, 2025 Assessment & Plan (1) Hyponatremia: (2) Dizziness: (3) Essential hypertension: (4) Type 2 diabetes mellitus with peripheral neuropathy: Plan This is a 75 year old female with past medical history of Meniere's disease, asthma, dyslipidemia, Holley syndrome, and GERD who presented to the ED on 08/02/2025 for dizziness & feeling dehydrated. While in the ED, her BMP was revealing for a low sodium of 125. The remainder of her BMP appeared stable & her CBC was without leukocytosis, anemia, or thrombocytopenia. Her serum osmol was 267, urine osmol 130, and Urine Na 17. UA was negative for infection. TSH elevated at 4.684 w/ a normal free T4 value. Her CXR was negative. She was given 1L of IVF. #Hyponatremia With poor PO intake for ~ 1 month secondary to diagnosis of colitis. 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 Also complaints of dizziness at 05/05/25 PCP visit. Likely causing the dizziness. BMP w/ low Na of 125 on admission, typical baseline for patient is between 137- 140. Urine osmol 130, Urine Na 17 indicating dehydration/hypovolemia is underlying likely etiology for her hyponatremia s/p 1L of fluid in ED, repeat BMP to re-eval sodium levels prior to scheduling maintenance fluid. Obtain orthostatic VS Monitor BMP q4h PT/OT consulted, appreciate recommendations. #HTN BP normotensive on admission. On metoprolol, Aldactone, and telmisartan outpatient. Continue Metoprolol. Await orthostatic VS prior to resuming telmisartan. Hold Aldactone in the setting of dehydration. #Hypothyroidism On Levothyroxine 25mcg outpatient. - continue Per recent PCP visit, patient w/ hx of thyroid nodules & obtains imaging outpatient. Also reports she cannot tolerate levothyroxine ? TSH level elevated at 4.684 w/ normal Free T4. Recheck TSH levels in 4-6 weeks outpatient. #Constipation | Holley Syndrome Has had a change in BM's since episode of colitis end of June. Last CN 07/06 w/ 1 polyp removed. Start Miralax once daily. Suspect dehydration is playing role in bowel habit changes. Continue to follow on outpatient basis for routine CN given hx of Holley. Consider repeat CN sooner on outpatient basis. #GERD - PPI #T2DM w/ neuropathy - Diet controlled. A1c 03/2025 - 6.6%. #Asthma - no recent exacerbations. on albuterol prn outpatient. DVT prophylaxis: Lovenox Code: full Case was discussed with Dr. Jean-Baptiste at time of admission; updated at bedside w/ admission plans. History of Present Illness Primary Care Provider: JONH Dash This is a 75 year old female with past medical history of Meniere's disease, asthma, dyslipidemia, GERD who presented to the ED on 08/02/2025 for dizziness & feeling dehydrated. Daksha was seen & examined this afternoon with her at bedside. She reports that at the end of June she was diagnosed with colitis and has been on a bland diet since. She reports that yesterday she started to experience dizziness & feeling that she was dehydrated. She complained of a dry mouth/lips. She reports she did not sleep well overnight secondary to these symptoms and then drank 5-16oz bottles of water between 3-9am this morning. Her dizziness did not improve, she felt it might have worsened so she decided to come to the ER. Since here, she does not feel improvement. She feels dizzy at rest & it is worse upon standing. She has a hx of Meniere's disease and reports this does not feel similar to an exacerbation of it. Reports she has not had any issues with Meniere's disease for quite some time. She did take her AM medications this morning. She denies any abdominal pain. reports ongoing nausea and feeling of constipation since she was diagnosed with colitis. Reports she is not moving her bowels day and her last BM was yesterday that was a type 1 on the bristol stool chart. She denies any chest pain, shortness of breath, fevers, chills, lower extremity edema, urinary frequency/urgency, dysuria. reports about a 5lb weight loss since she was diagnosed with colitis. While in the ED, her BMP was revealing for a low sodium of 125. The remainder of her BMP appeared stable & her CBC was without leukocytosis, anemia, or thrombocytopenia. Her serum osmol was 267, urine osmol 130, and Urine Na 17. UA was negative for infection. TSH elevated at 4.684 w/ a normal free T4 value. Her CXR was negative. She was given 1L of IVF. Code discussion did take place and she does confirm that she is a full code. Allergies Allergy/AdvReac Type Severity Reaction Status Date / Time raloxifene [From Evista] Allergy Intermediate edema Verified 07/28/25 12:54 metformin AdvReac Severe Diarrhea Verified 07/28/25 12:54 amlodipine AdvReac Intermediate Rash Verified 07/28/25 12:54 atorvastatin [From Lipitor] AdvReac Intermediate myalgia Verified 07/28/25 12:54 chlorthalidone AdvReac Intermediate Joint Pain Verified 07/28/25 12:54 ezetimibe [From Zetia] AdvReac Intermediate myalgias Verified 07/28/25 12:54 fluvastatin AdvReac Intermediate myalgias Verified 07/28/25 12:54 hydrochlorothiazide AdvReac Intermediate Abdominal Verified 07/28/25 12:54 Pain levothyroxine AdvReac Intermediate MUSCLE Verified 07/28/25 12:54 STIFFNESS/PAIN lisinopril AdvReac Intermediate dry cough Verified 07/28/25 12:54 rosuvastatin AdvReac Intermediate myalgias Verified 07/28/25 12:54 simvastatin AdvReac Intermediate myalgias Verified 07/28/25 12:54 pravastatin AdvReac Diarrhea Verified 08/02/25 16:12 Home Medications Medication Instructions Recorded Confirmed Type albuterol sulfate 90 mcg/actuation 2 puffs inhalation Q4H PRN 05/13/19 08/02/25 History aerosol inhaler shortness of breath or wheezing #1 g aspirin 81 mg tablet,delayed 81 mg PO HS 07/27/19 08/02/25 History release cyanocobalamin (vitamin B-12) 1,000 mcg IM Q30D 12/11/23 08/02/25 History 1,000 mcg/mL injection solution spironolactone 25 mg tablet 25 mg PO QAM #90 tabs 09/29/24 08/02/25 Rx levothyroxine 25 mcg tablet 25 mcg PO DAILY #30 tabs 05/06/25 08/02/25 Rx metoprolol succinate 25 mg 12.5 mg PO BID 07/09/25 08/02/25 History tablet,extended release 24 hr telmisartan 20 mg tablet 20 mg PO BID 07/09/25 08/02/25 History omeprazole 20 mg capsule,delayed 20 mg PO QAM #90 caps 07/22/25 08/02/25 Rx release ondansetron 4 mg disintegrating 4 mg PO Q8H PRN Nausea #30 tabs 07/28/25 08/02/25 Rx tablet Past Med/Surg History Problem List (Updated 08/02/25 @ 16:54 by Angel Wilcox MD) Confusion (Acute) Dizziness (Acute) Hyponatremia (Acute) Chronic kidney disease Thyroid nodule Chest pain syndrome Atypical chest pain (Acute) Coronary atherosclerosis Type 2 diabetes mellitus with peripheral neuropathy (Chronic) Essential hypertension Xanthelasma of eyelid, bilateral (Chronic) Cervical radicular pain (Chronic) Ascending aorta dilatation (Chronic) Moderate aortic insufficiency (Chronic) Thyroid nodule (Chronic) Elevated TSH Sensory polyneuropathy (Chronic) B12 deficiency (Chronic) Meniere disease (Chronic) Obesity Peripheral arterial disease (Chronic) Urinary incontinence (Chronic) Anxiety Aortic regurgitation Asthma Bilateral sensorineural hearing loss "ringing in the ears" Dyslipidemia Gastroesophageal reflux disease Insomnia Holley syndrome Multiple pulmonary nodules pt denies Osteopenia Medical History Chest pain, rule out acute myocardial infarction Angina at rest Left upper extremity numbness Statin myopathy Hx of vertigo "has gotten better" Urinary incontinence Thyroid nodule Sensory polyneuropathy Peripheral arterial disease Osteopenia Multiple pulmonary nodules Insomnia Diabetes type 2, controlled diet controlled Hypertension Dyslipidemia GERD (gastroesophageal reflux disease) Cervical radicular pain "has gotten better, due to arthritis in her neck" Asthma inh prn>rare use Ascending aorta dilatation Aortic regurgitation History of anxiety Holley syndrome CAD (coronary artery disease) f/u [facility] History of nephrolithiasis no sx History of colitis History of COVID-19 diagnosed 05/04/2022 @ [facility]--head pain, severe bone pain, slight cough, fatigue--did take antiviral--no symptoms now Hx of endometriosis BCC (basal cell carcinoma) hx Surgical History Hx of cardiac cath [facility], no stents; f/u [facility] History of esophagogastroduodenoscopy (EGD) History of colonoscopy 05/2023 S/P Mohs surgery for basal cell carcinoma History of total hysterectomy with removal of both tubes and ovaries Family History Father , 79 Hyperlipidemia Myocardial infarction Sister , 61 Ovarian cancer Breast cancer Benign adenomatous polyp of large intestine Family history of reaction to anesthesia difficulty waking Daughter Holley syndrome Son Colorectal cancer, Onset Age: 47 Holley syndrome Mother , 69 Aortic aneurysm Heart disease Hypertension Denies family history of Prostate cancer Lung cancer Social History Smoking Status: Never smoker Second Hand Exposure: Yes (hx); Do You Dip or Chew Tobacco: No; Hx Alcohol Use: No Hx Substance Use: No Preferred Language: Ghanaian Communication Ability: Effective Visual Impairment: No Limitations Hearing Ability: Normal Title Department Manager Required: No Beliefs That Will Affect Care: None marital status: Current Living Situation: Spouse current occupational status: retired Feels Safe at Home: Yes Safety Concerns: Feels Safe At This Time Childhood Exposure to Second-Hand Smoke: Yes Diet: regular Diet Comment: regular caffeine: Yes (tea 1 cup per day.) during the past year weight has: remained stable Dental Care, Regularly: Yes Physical Activity Frequency: 3-4 Times per Week Seatbelt Use: always Sunscreen Use: Yes Assistive Devices: Glasses Physical Exam Physical Exam: General: NAD, VS: BP 138/67; P63; T36.6C; R17. ENT: oropharynx with dry mucous membranes. Resp: normal respiratory effort, lungs clear to auscultation CV: RRR, no murmur Abd: normal bowel sounds, non tender, soft Extremities: Moves all extremities, no edema, strength & sensation intact in UE & LE. Neuro: A&O x3 Skin: intact, no lesions noted Results & Data Results & Data Vital Signs (Past 12 Hours) Vital Signs Temp Pulse Pulse Resp BP BP Pulse Ox 08/02/25 15:00 138/67 08/02/25 15:00 138/67 08/02/25 15:00 63 17 95 08/02/25 14:51 62 21 95 08/02/25 14:42 63 15 96 08/02/25 14:30 61 21 95 08/02/25 14:30 139/69 08/02/25 14:30 139/69 08/02/25 14:30 139/69 08/02/25 14:30 139/69 08/02/25 14:30 139/69 08/02/25 14:21 63 18 96 12/21/25 14:12 63 15 96 08/02/25 14:00 76 22 95 08/02/25 14:00 127/57 L 08/02/25 14:00 127/57 L 08/02/25 14:00 127/57 L 08/02/25 14:00 127/57 L 08/02/25 14:00 127/57 L 08/02/25 13:51 59 L 18 97 08/02/25 13:42 58 L 15 96 08/02/25 13:33 58 L 19 97 08/02/25 13:31 124/49 L 08/02/25 13:31 124/49 L 08/02/25 13:31 124/49 L 08/02/25 13:31 124/49 L 08/02/25 13:31 124/49 L 08/02/25 13:30 61 17 97 08/02/25 13:21 58 L 15 97 08/02/25 13:12 60 18 97 08/02/25 13:00 58 L 19 97 08/02/25 13:00 126/61 08/02/25 13:00 126/61 08/02/25 13:00 126/61 08/02/25 13:00 126/61 08/02/25 13:00 126/61 08/02/25 12:51 60 15 97 08/02/25 12:49 60 08/02/25 12:45 60 24 97 08/02/25 12:24 59 L 20 142/63 H 96 08/02/25 12:22 61 96 08/02/25 12:03 36.6 C 69 18 167/84 H 95 O2 Del Method 08/02/25 15:00 08/02/25 15:00 08/02/25 15:00 08/02/25 14:51 08/02/25 14:42 08/02/25 14:30 08/02/25 14:30 08/02/25 14:30 08/02/25 14:30 08/02/25 14:30 08/02/25 14:30 08/02/25 14:21 08/02/25 14:12 08/02/25 14:00 08/02/25 14:00 08/02/25 14:00 08/02/25 14:00 08/02/25 14:00 08/02/25 14:00 08/02/25 13:51 08/02/25 13:42 08/02/25 13:33 08/02/25 13:31 08/02/25 13:31 08/02/25 13:31 08/02/25 13:31 08/02/25 13:31 08/02/25 13:30 08/02/25 13:21 08/02/25 13:12 08/02/25 13:00 08/02/25 13:00 08/02/25 13:00 08/02/25 13:00 08/02/25 13:00 08/02/25 13:00 08/02/25 12:51 08/02/25 12:49 08/02/25 12:45 08/02/25 12:24 Room Air 08/02/25 12:22 Room Air 08/02/25 12:03 Supervising Physician Co-Signing Physician Notes PA Supervision Note: I personally saw and examined the patient. I verified all serrato points and agree with ALEKSANDAR Moore with the following exceptions and/or additions: S-this patient is a 75-year-old female with history noted as above, here with worsening dizziness and feeling dehydrated. She has been eating a bland diet for the last month since having a bad episode of colitis. She drank 516 ounce bottles of water earlier this morning before coming in thinking that would help her dizziness but it made her feel worse. History and ROS otherwise reviewed as above. Found to have a sodium of 125 on admission. Urine osmolality and urine sodium consistent with hypotonic, hypovolemic hyponatremia. She was given 1 L of normal saline in the ED. There was a delay in getting the repeat BMP due to transferring to the floor and repeat sodium was already up to 132. Second liter of normal saline was discontinued. The patient told me she was already feeling much improved with her dizziness. O- Vitals reviewed Gen: AAOx3, NAD HEENT: Anicteric sclerae, EOMI CV: RRR no mgr nl S1S2 Pulm: CTAB no wcr Abd: +BS soft NT ND no masses or hernias Ext: No edema, 2+ DP pulses Skin: No rashes, warm/dry Neuro: Full strength throughout CBC, BMP reviewed A/M-89-ojaj-old female here with hyponatremia secondary to hypovolemia and tea and toast diet. Colitis has resolved No further normal saline at this time Serial BMP Has colonoscopy scheduled for October 2025 Possible discharge to home on 08/03 if sodium improved and feeling well PG Care Time/CCT Total # of Minutes Spent Total Time Spent with Patient: Total time spent is greater than 50% in coordination of care (as documented) at patient's floor/unit and/or counseling patient: Coding Level of Care Code 66332 INT INP/OBS CARE 3/75MIN Diagnoses Hyponatremia E87.1 Dizziness R42 Essential hypertension I10 Type 2 diabetes mellitus with peripheral neuropathy E11.42
[2025-08-02 20:03] LABS: Anion Gap 6.0 (3-11); Blood Urea Nitrogen 8.0 mg/dl (6-23); Calcium 9.5 mg/dl (8.6-10.3); Carbon Dioxide 24.0 mmol/L (21-32); Chloride 102.0 mmol/L (98-107); Creatinine Clr Calc Pharmacy 48.8 ml/min; Glucose 121.0 mg/dl (70-99(Fasting)); Potassium 4.2 mmol/L (3.5-5.1); Sodium 132.0 mmol/L (136-145)
[2025-08-02] MEDS: METOPROLOL SUCC 25MG EXT REL TAB PO SCH (21:28)
[2025-08-02] MEDS: LOSARTAN POTASSIUM 25 MG TAB PO SCH (21:29)
[2025-08-02] MEDS: ASPIRIN 81 MG ECTAB PO SCH (21:29)
[2025-08-02 23:46] LABS: Anion Gap 7.0 (3-11); Blood Urea Nitrogen 10.0 mg/dl (6-23); Calcium 9.2 mg/dl (8.6-10.3); Carbon Dioxide 25.0 mmol/L (21-32); Chloride 103.0 mmol/L (98-107); Creatinine Clr Calc Pharmacy 46.3 ml/min; Glucose 99.0 mg/dl (70-99(Fasting)); Potassium 4.3 mmol/L (3.5-5.1); Sodium 135.0 mmol/L (136-145)
[2025-08-03 04:25] LABS: Hematocrit (blood only) 35.2 % (37.0-47.0); Hemoglobin 11.9 g/dL (12.0-16.0); Mean Corpuscular Hemoglobin 29.2 pg (25.0-34.0); Mean Corpuscular Volume 86.5 fL (80.0-100.0); Platelet Count 260 K/uL (130-400); RDW Standard Deviation 39.5 fL (36.4-46.3); Red Blood Count 4.07 M/uL (4.20-5.40); White Blood Count 5.67 K/ul (4.8-10.8)
[2025-08-03 04:42] LABS: Anion Gap 6.0 (3-11); Blood Urea Nitrogen 10.0 mg/dl (6-23); Calcium 9.3 mg/dl (8.6-10.3); Carbon Dioxide 25.0 mmol/L (21-32); Chloride 105.0 mmol/L (98-107); Creatinine Clr Calc Pharmacy 49.5 ml/min; Glucose 101.0 mg/dl (70-99(Fasting)); Magnesium 2.1 mg/dl (1.7-2.4); Potassium 4.2 mmol/L (3.5-5.1); Sodium 136.0 mmol/L (136-145)
[2025-08-03] MEDS: LEVOTHYROXINE SODIUM 25 MCG TABLET PO SCH (06:00)
[2025-08-03 07:55] LABS: Hemoglobin A1C 6.5 % (4.5-5.6)
[2025-08-03] MEDS: POLYETHYLENE (MIRALAX) 17 GM PACK PO SCH (09:02)
[2025-08-03] MEDS: MECLIZINE 12.5 MG TAB PO PRN (10:14)
[2025-08-03 11:44] VITALS: RESP 14; TEMP 98.2; O2SAT 92
--- NOTE | 2025-08-03 13:04 | Discharge Summary ---
"Discharge Summary Date of Service August 03, 2025 Principal Dx & Hospital Course #1 = Principal Diagnosis (1) Hyponatremia: (2) Dizziness: (3) Essential hypertension: (4) Type 2 diabetes mellitus with peripheral neuropathy: Plan This is a 75 year old female with past medical history of Meniere's disease, asthma, dyslipidemia, Holley syndrome, and GERD who presented to the ED on 08/02/2025 for dizziness & feeling dehydrated. #Hyponatremia With poor PO intake for ~ 1 month secondary to diagnosis of colitis. Drank 5 - 16oz bottles of water GERONTOLOGY AIDE w/ no improvement in symptoms. Also complaints of diz ziness at 05/05/25 PCP visit. Urine osmol 130, Urine Na 17 indicating dehydration/hypovolemia is underlying likely etiology for her hyponatremia BMP w/ low Na of 125 on admission, after 1L of IVF Na slowly improved to normal range at 136. Orthostatic VS negative. s/p 1 dose of Meclizine on 08/03 w/ major improvement in symptoms. Rec continue this on prn basis every 8 hours on discharge. PT/OT consulted-->rec return home #HTN BP normotensive on admission. On metoprolol, Aldactone, and telmisartan outpatient. - continue Monitor BP at home on regular basis. #Hypothyroidism On Levothyroxine 25mcg outpatient. - continue Per recent PCP visit, patient w/ hx of thyroid nodules & obtains imaging outpatient. Also reports she cannot tolerate levothyroxine ? TSH level elevated at 4.684 w/ normal Free T4. Recheck TSH levels in 4-6 weeks outpatient. #Constipation | Holley Syndrome Has had a change in BM's since episode of colitis end of June. Last CN 07/06 w/ 1 polyp removed. Start Miralax once daily, rec continuing on outpatient basis if constipation persists. Suspect dehydration is playing role in bowel habit changes. Continue to follow on outpatient basis for routine CN given hx of Holley. Consider repeat CN sooner on outpatient basis. #GERD - PPI #T2DM w/ neuropathy - Diet controlled. A1c 03/2025 - 6.6%. #Asthma - no recent exacerbations. on albuterol prn outpatient. Patient discharged home 08/03. Admission HPI Per Admitting Provider This is a 75 year old female with past medical history of Meniere's disease, asthma, dyslipidemia, GERD who presented to the ED on 08/02/2025 for dizziness & feeling dehydrated. Daksha was seen & examined this afternoon with her at bedside. She reports that at the end of June she was diagnosed with colitis and has been on a bland diet since. She reports that yesterday she started to experience dizziness & feeling that she was dehydrated. She complained of a dry mouth/lips. She repo rts she did not sleep well overnight secondary to these symptoms and then drank 5-16oz bottles of water between 3-9am this morning. Her dizziness did not improve, she felt it might have worsened so she decided to come to the ER. Since here, she does not feel improvement. She feels dizzy at rest & it is worse upon standing. She has a hx of Meniere's disease and reports this does not feel similar to an exacerbation of it. Reports she has not had any issues with Meniere's disease for quite some time. She did take her AM medications this morning. She denies any abdominal pain. reports ongoing nausea and feeling of constipation since she was diagnosed with colitis. Reports she is not moving her bowels day and her last BM was yesterday that was a type 1 on the bristol stool chart. She denies any chest pain, shortness of breath, fevers, chills, lower extremity edema, urinary frequency/urgency, dysuria. reports about a 5lb weight loss since she was diagnosed with colitis. While in the ED, her BMP was revealing for a low sodium of 125. The remainder of her BMP appeared stable & her CBC was without leukocytosis, anemia, or thrombocytopenia. Her serum osmol was 267, urine osmol 130, and Urine Na 17. UA was negative for infection. TSH elevated at 4.684 w/ a normal free T4 value. Her CXR was negative. She was given 1L of IVF. Code discussion did take place and she does confirm that she is a full code. Discharge Exam General: NAD, VS as above Resp: normal respiratory effort Extremities: Moves all extremities, no edema Neuro: A&O x3, Skin: intact, no lesions noted Discharge Plan Discharge Items Patient Disposition: Home - Self-Care Reason For Visit: DIZZINESS, DEHYDRATION Discharge Diagnosis: Dizziness Activity: Resume your previous activity Non-emergency contact: Primary Care Provider Call non-emergency contact if: you have any medication questions and your symptoms worsen Follow-up/Referrals: Jeffery Mann CRNP [Primary Care Provider] - 08/11/25 8:20 am Diet: Regular Addtl Attending Provider Instructions: Mrs. Saucedo, You were recently hospitalized for dizziness. You were treated with IV fluid and a medication called Meclizine that helped with your symptoms. Medications: Your medication list has been reviewed and reconciled upon discharge to ensure accuracy and continuity of care. An updated list of all your medications is included with your hospital discharge paperwork. Please review this list closely, and make note of any changes. Please take Meclizine 12.5mg every 8 hours as needed for dizziness. Please remain on your medications for your blood pressure and keep a close eye on your blood pressure readings at home. Take your medications as instructed; do not skip a dose of your medicines. Make sure all of your doctors know every medicine you are taking (including hrej-ddn-hccwinm medicines, vitamins, and supplements). Call your primary care provider before taking any new medicines (including over- the-counter medicines, vitamins, and supplements), because some of these may interact with your current medications, or may make your symptoms worse. Tell your primary care provider if you cannot afford your medications. Activity: You can do normal everyday activities as your body allows. Take rest breaks if you feel tired. Do not overexert. Stop activity if you have pain, shortness of breath or feel dizzy. Follow-up appointments: Make an appointment with your primary care physician within one week of discharge. A copy of this summary will be sent to them. Every time you see your primary care physician, or any other doctor, bring your medication list, and a list of questions. CONTACT YOUR PRIMARY CARE PROVIDER if you experience any of the following: Shortness of breath or difficulty breathing Fevers or chills Feeling tired with normal activity or experiencing dizziness or fainting Difficulty following your treatment plan, or difficulty taking medications CALL 911 OR GO TO THE EMERGENCY DEPARTMENT if you experience any of the following: Severe abdominal pain or nausea/vomiting Severe chest pain, or chest pain that radiates (moves) to your jaw or arm Sudden, severe shortness of breath or difficulty breathing Thank you for allowing us to participate in your care. Happy Holidays! Pending Studies at Discharge: No Stand-Alone Forms: [facility] [place] [facility], Smoking Cessation Medications and DC Order Prescriptions: New meclizine 12.5 mg tablet 12.5 mg PO TID PRN (Reason: dizziness) Qty: 30 0RF Continued levothyroxine 25 mcg tablet 25 mcg PO DAILY Qty: 30 2RF omeprazole 20 mg capsule,delayed release(DR/EC) 20 mg PO QAM Qty: 90 1RF albuterol sulfate 90 mcg/actuation HFA aerosol inhaler 2 puffs inhalation Q4H PRN (Reason: shortness of breath or wheezing) Qty: 1 Patient Comments: 04/12- no fill history unable to verify every 4-6 hrs spironolactone 25 mg tablet 25 mg PO QAM Qty: 90 3RF ondansetron 4 mg tablet,disintegrating 4 mg PO Q8H PRN (Reason: Nausea) Qty: 30 3RF aspirin 81 mg Tablet,Delayed Release (Dr/Ec) 81 mg PO HS Hold Instructions: high bp- per cardiolgist cyanocobalamin (vitamin B-12) 1,000 mcg/mL solution 1,000 mcg IM Q30D telmisartan 20 mg tablet 20 mg PO BID Rx Instructions: TAKE ONE TABLET BY MOUTH TWICE DAILY metoprolol succinate 25 mg tablet extended release 24 hr 12.5 mg PO BID Rx Instructions: TAKE 1/2 TABLET BY MOUTH TWICE DAILY Discharge Orders: Discharge Order (Routine); Ordered 08/03/25 Ordered By: Kailey Graham/Other Patient Handouts: Type 2 Diabetes Admission Data Admit Date/Time: 08/02/25 15:54 Attending Provider: Vince Negro Admit Provider: Ember Jean-Baptiste Primary Care Provider: Jeffery Mann Other Providers: Chacho Lau Other Interventions: Discharge Summary Assessment (RN) Last Done: 08/03/25 13:06 Hospital Stay Data Consultations 08/02/25 15:05 ED Decision to Admit Stat Pending Results Patient Have Any Pending Studies at Discharge: No Discharge Instructions Given to Patient (Per Discharging Provider) Mrs. Saucedo, You were recently hospitalized for dizziness. You were treated with IV fluid and a medication called Meclizine that helped with your symptoms. Medications: Your medication list has been reviewed and reconciled upon discharge to ensure accuracy and continuity of care. An updated list of all your medications is included with your hospital discharge paperwork. Please review this list closely, and make note of any changes. Please take Meclizine 12.5mg every 8 hours as needed for dizziness. Please remain on your medications for your blood pressure and keep a close eye on your blood pressure readings at home. Take your medications as instructed; do not skip a dose of your medicines. Make sure all of your doctors know every medicine you are taking (including ayyf-dvj-jencllc medicines, vitamins, and supplements). Call your primary care provider before taking any new medicines (including over- the-counter medicines, vitamins, and supplements), because some of these may interact with your current medications, or may make your symptoms worse. Tell your primary care provider if you cannot afford your medications. Activity: You can do normal everyday activities as your body allows. Take rest breaks if you feel tired. Do not overexert. Stop activity if you have pain, shortness of breath or feel dizzy. Follow-up appointments: Make an appointment with your primary care physician within one week of discharge. A copy of this summary will be sent to them. Every time you see your primary care physician, or any other doctor, bring your medication list, and a list of questions. CONTACT YOUR PRIMARY CARE PROVIDER if you experience any of the following: Shortness of breath or difficulty breathing Fevers or chills Feeling tired with normal activity or experiencing dizziness or fainting Difficulty following your treatment plan, or difficulty taking medications CALL 911 OR GO TO THE EMERGENCY DEPARTMENT if you experience any of the following: Severe abdominal pain or nausea/vomiting Severe chest pain, or chest pain that radiates (moves) to your jaw or arm Sudden, severe shortness of breath or difficulty breathing Thank you for allowing us to participate in your care. Happy Holidays! Total Time Total Time Spent Total Time Spent (In Minutes): 50 Total Time Includes: Examination of the Patient, Discharge Planning and Medication Reconciliation Coding Level of Care Code 36736 INP/OBS DISCH >30 MIN Diagnoses Hyponatremia E87.1 Dizziness R42 Essential hypertension I10 Type 2 diabetes mellitus with peripheral neuropathy E11.42"
[2025-08-03 13:07] VITALS: BP 127/85; PULSE 71
--- NOTE | 2025-08-03 14:14 | Electrocardiogram Report ---
Test Reason : Blood Pressure : */* mmHG Vent. Rate : 64 BPM Atrial Rate : 64 BPM P-R Int : 166 ms QRS Dur : 84 ms QT Int : 398 ms P-R-T Axes : 16 9 30 degrees QTcB Int : 410 ms Normal sinus rhythm with sinus arrhythmia Normal ECG When compared with ECG of 12-Apr-2025 07:11, Criteria for Inferior infarct are no longer Present Nonspecific T wave abnormality has replaced inverted T waves in Inferior leads Confirmed by Bharath Cobos ([id number]) on 08/03/2025 2:14:12 PM Referred By: REFERRED SELF Confirmed By: Bharath Cobos
[2025-08-03] MEDS ORDERED: LOSARTAN POTASSIUM 25 MG TAB PO SCH (21:00)
== END 2025-08-03 13:30 | disposition home or self-care (01) | DRG 641 ==
LOC: SUATTDRO → ED 12:03 → INTOOBSV 15:54 → 2N 15:54 → SUATTDRO 15:54 → 2N 17:15